=== PATIENT | female | born 1930 | race Caucasian/White ===

== ENCOUNTER 2016-07-03 21:21 | Inpatient (IN) | payer MEDICARE, OTHER ==
[~2016-07-03] VITALS: Ht 157.5 cm; Wt 80.0 kg
[~2016-07-03 21:21] MED LIST: ASPI81TA3 PO; BUPR150T18 PO; CALC500T99 PO; DEXL60CA2 PO; DIAZ-90 PO; DIVA125T2 PO; DONE10TA7 PO; FER325 PO; FOLI-49 PO; HYDR-906 PO; IBAN150T7 PO; IBUP-1542 PO; LOSA100T7 PO; MECL-77 PO; MEMA28CA PO; PREG50CA PO; RESTOP4 BOTH EYES
[2016-07-03] MEDS ORDERED: SOD CHLORIDE 0.9% 500 ML IV STA (21:33)
[2016-07-03] MEDS ORDERED: LORAZEPAM 2 MG INJ IV ONE (22:00)
--- NOTE | 2016-07-03 22:01 | RADRPT ---
PROCEDURE: CT Brain without contrast. CLINICAL INDICATION: Code stroke TECHNIQUE: A CT of the brain was performed utilizing axial imaging from the skull base through the vertex without intravenous contrast. Multiplanar reformatted images were made.The CTDIvol is 43.77 mGy and the DLP is 720.23 mGycm. One or more the following dose reduction techniques were utilized: Automated exposure control, adjus tment of the mA/ or kV according to patient's size, or use of iterative reconstruction technique. COMPARISON: 01/31/2014 FINDINGS: There is no intracranial hemorrhage, mass effect, or midline shift. No extra-axial fluid collection is seen. Mild atrophy is identified with compensatory ventricular and sulcal enlargement. Moderat e decreased attenuation is seen in the periventricular and deep white matter, compatible with microv ascular ischemic disease. The garcia white matter differentiation is well preserved with no acute infa rct detected. The osseous structures and visualized paranasal sinuses are unremarkable. No signifi cant change compared to previous study. Arterial calcification. IMPRESSION: No acute bleed. No acute major territory infarct seen. Critical result discussed with Dr. Antony at 09:57 p.m. on 07/03/2016. RPTAT: HJES .Flaquito Robles MD, MD Date Time Electronically viewed and signed by .Flaquito Robles MD, MD on 07/03/2016 22:00 .S/
[2016-07-03 22:08] LABS: ADD SCAN DIFF NO
[2016-07-03 22:12] LABS: BASOPHILS % 0.8 % (0.0-2.0); EOSINOPHILS # 0.1 10^3/ul (0.0-0.5); EOSINOPHILS % 2.4 % (0.0-7.0); HEMATOCRIT 39.1 % (37.0-47.0); HEMOGLOBIN 13.2 g/dl (12.0-16.0); LYMPHOCYTES # 2.3 10^3/ul (0.8-2.9); LYMPHOCYTES % 44.9 % (15.0-51.0); MEAN CORPUSCULAR HEMOGLOBIN 30.7 pg (29.0-33.0); MEAN CORPUSCULAR HGB CONC 33.8 g/dl (32.0-37.0); MEAN CORPUSCULAR VOLUME 90.9 fl (82.0-101.0); MONOCYTE # 0.5 10^3/ul (0.3-0.9); MONOCYTES % 9.8 % (0.0-11.0); NEUTROPHIL # 2.1 10^3/ul (1.6-7.5); NEUTROPHILS % 41.3 % (39.0-77.0); PLATELET COUNT 153 10^3/UL (140-415); RED CELL DISTRIBUTION WIDTH 12.9 % (11.5-14.5)
[2016-07-03 22:22] LABS: INR 1.05; PROTIME 13.7 Sec (12.2-14.2); PT RATIO 1.1
[2016-07-03 22:23] LABS: PARTIAL THROMBOPLASTIN TIME 27.6 Sec (25.0-35.0)
[2016-07-03 22:24] LABS: ALANINE AMINOTRANSFERASE 28 IU/L (13-69); ALBUMIN/GLOBULIN RATIO 1.21; ALKALINE PHOSPHATASE 77 IU/L (42-121); ANION GAP 10 (8-16); ASPARTATE AMINO TRANSFERASE 28 IU/L (15-46); BILIRUBIN,INDIRECT 0.2 mg/dl (0-1.1); BILIRUBIN,TOTAL 0.2 mg/dl (0.2-1.3); BLOOD UREA NITROGEN 14 mg/dl (7-20); CALCIUM 9.6 mg/dl (8.4-10.2); CARBON DIOXIDE 26 mmol/L (21-31); CHLORIDE 103 mmol/L (97-110); CREATININE 0.92 mg/dl (0.44-1.00); GLUCOSE 104 mg/dl (70-220); POTASSIUM 3.8 mmol/L (3.5-5.1); SODIUM 135 mmol/L (135-144); TOTAL PROTEIN 7.3 g/dl (6.1-8.1)
[2016-07-03 22:36] LABS: TROPONIN-I < 0.012 ng/ml (0.00-0.12)
--- NOTE | 2016-07-03 22:45 | RADRPT ---
PROCEDURE: CHEST - 1 VIEW CLINICAL INDICATION: 85-year-old female with change in mental status. TECHNIQUE: A single frontal AP semi-erect portable view of the chest was performed. The images we re reviewed on a PACS workstation. COMPARISON: Chest x-ray/right rib series March 17, 2015; chest x-ray January 31, 2014. FINDINGS: The cardiomediastinal silhouette is enlarged. The thoracic aortic arch is calcified. Chronic lung changes are present. There is mild pulmonary vascular congestion. There is a shallow inspiration a nd elevation right hemidiaphragm. There is mild bibasilar subsegmental atelectasis. There is no ev idence for focal consolidation. There is no evidence for congestive heart failure. There is no evid ence for pneumothorax. The osseous structures are intact. IMPRESSION: 1. Cardiomegaly. 2. Calcified thoracic aortic arch. 3. Chronic lung changes. 4. Mild pulmonary vascular congestion. 5. Shallow inspiration with elevation right hemidiaphragm. 6. Mild bibasilar subsegmental atelectasis. .Deepak Zazueta MD, MD Date Time Electronically viewed and signed by .Deepak Zazueta MD, on 07/03/2016 22:45 .M/
--- NOTE | 2016-07-03 23:01 | CONS ---
DATE OF ADMISSION: 07/03/2016 DATE OF CONSULTATION: 07/03/2016 REASON FOR CONSULTATION: I was asked to see the patient for mental status change. HISTORY OF PRESENT ILLNESS: The patient is an 85-year-old female with past medical history of macul ar degeneration, legal blindness, and dementia who was caring for her dying earlier tonight when she became agitated and upset. The patient was brought to the emergency department because of increased anxiety. While in the emergency department, the patient was noted to perhaps have some fa cial asymmetry. The patient has been struggling with the loss of her significant other recently. Ace luciano denies any recent illness for the patient at all, but does endorse a significant amount of dis tress. History was obtained through interpretation of the family. The patient denies any specific complaints at present and was able to provide some basic information regarding her history. The pat ient denies any weakness in the arms or the legs, difficulty swallowing, difficulty speaking. The p atient has no prior history of stroke. The patient reports no evidence of trauma. PAST MEDICAL HISTORY: The patient's past medical history is as described. MEDICATIONS: Her medication list is being collected. PHYSICAL EXAMINATION: The patient is alert, follows commands. Facies is grossly symmetric. Extrao cular movements are full. Strength is 5/5 throughout. The patient has gross ____. Sensation was i ntact. ASSESSMENT: This is a patient with a substantially limited baseline who comes in with symptoms of i ncreased anxiety without focal neurologic impairment that is suggestive of ischemic stroke. No fernando tional workup is required from a neurologic standpoint. If patient develops focality to her symptom atology, I recommend reconsultation. I shared my findings and recommendations with the emergency de partment team. Dictated By: LULU SHARP CM/STEWART Conf#: [id number] DID#: [id number]
[2016-07-04] VITALS (12 sets, daily range): BP systolic 112–144; BP diastolic 53–67; PULSE 62–78; RESP 18–20; TEMP 97.9; Ht 157.5 cm; Wt 80.0 kg
--- NOTE | 2016-07-04 00:55 | ERA ---
ER Documentation Chief Complaint Date/Time DATE: 07/04/16 TIME: 00:53 Chief Complaint anxiety, pt. arrives mumbling?, answers quest. by nodding head, purpos mvmo HPI This is an 85-year-old female who brought arriving mild mumbling by paramedics. According to family she got into an argument with her , that she became acutely altered mental status and started repeating phrases over an hour again. Family noted slight right-sided droop. Called 9 1. Paramedics found the patient in with complaints of anxiety however the patient does not follow any commands whatsoever. Code stroke called immediately ROS All systems reviewed and are negative except as per history of present illness. Medications Home Meds Active Scripts Hydrocodone Bit-Acetaminophen ([place]) 5-325 Mg Tablet, 1 TAB PO Q8 Y for PAIN, # 14 TAB Prov:OJ OATES MD 03/17/15 Diazepam* (Valium*) 5 Mg Tablet, 5 MG PO Q8, #14 TAB Prov:OJ OATES MD 03/17/15 Ibuprofen* (Motrin*) 600 Mg Tab, 600 MG PO Q8, #14 TAB Prov:OJ OATES MD 03/17/15 Reported Medications Bupropion Hcl* (Bupropion Hcl SR*) 150 Mg Tablet.er, 150 MG PO DAILY, TAB.SA 03/17/15 Meclizine Hcl* (Meclizine Hcl*) 25 Mg Tablet, 25 MG PO TID, TAB 03/17/15 Ibandronate Sodium* (Boniva*) 150 Mg Tablet, 150 MG PO Q28D, TAB 03/17/15 Pregabalin* (Lyrica*) 50 Mg Capsule, 50 MG PO BID, CAP 03/17/15 Divalproex Sodium* (Divalproex Sodium*) 125 Mg Tablet.dr, 125 MG PO BID, #120 TAB 03/17/15 Cyclosporine* (Restasis* Oph) 32 Ea [place], 1 DROP BOTH EYES Q12, EA 01/31/14 Donepezil* (Donepezil*) 10 Mg Tablet, 10 MG PO DAILY, TAB 01/31/14 Aspirin (Aspirin) 81 Mg Chew, 81 MG PO DAILY, TAB.CHEW 01/31/14 Losartan Potassium* (Losartan Potassium*) 100 Mg Tablet, 100 MG PO DAILY, TAB 01/31/14 Memantine* (Namenda* XR) 28 Mg Reid24, 28 MG PO DAILY, TAB 01/31/14 Dexlansoprazole (Dexilant) 60 Mg , 60 MG PO DAILY, CAP 01/31/14 Calcium Carbonate ([id number]) 1 Tab Tablet, 1 TAB PO 01/31/14 Ferrous Sulfate* (Ferrous Sulfate*) 325 Mg Tabec, 325 MG PO TID, TAB 01/31/14 Folic Acid* (Folic Acid*) 1 Mg Tablet, MG PO DAILY, TAB 01/31/14 Allergies Allergies: Coded Allergies: No Known Allergy (Unverified , 03/17/15) PMhx/Soc History of Surgery: Yes (APPENDECTOMY, gallbladder removed) Anesthesia Reaction: No Hx Neurological Disorder: Yes (dementia) Hx Respiratory Disorders: Yes (on 02 at home at 2L (am prm, @ pm)) Hx Cardiac Disorders: Yes (intermittent irregular hr, htn) Hx Psychiatric Problems: Yes (dementia, depression) Hx Miscellaneous Medical Probl: Yes (LEGALLY BLIND (macular degeneration)) Hx Alcohol Use: No Hx Substance Use: No Hx Tobacco Use: No Smoking Status: Never smoker Physical Exam Vitals Vital Signs Date Time Temp Pulse Resp B/P Pulse Ox O2 Delivery O2 Flow Rate FiO2 07/04/16 00:17 69 14 109/49 98 Room Air 07/03/16 23:23 97.9 72 16 133/65 100 Nasal Cannula 2.0 07/03/16 22:06 Nasal Cannula 2 07/03/16 21:28 97.4 77 20 142/76 95 Physical Exam Const: [] Head: Atraumatic Eyes: Normal Conjunctiva ENT: Normal External Ears, Nose and Mouth. Neck: Full range of motion..~ No meningismus. Resp: Clear to auscultation bilaterally Cardio: Regular rate and rhythm, no murmurs Abd: Soft, non tender, non distended. Normal bowel sounds Skin: No petechiae or rashes Back: No midline or flank tenderness Ext: No cyanosis, or edema Neur: Awake and alert Psych: Normal Mood and Affect Result Diagram: 07/03/16215707/03/162157 Results 24 hrs Laboratory Tests Test 07/03/16 21:38 07/03/16 21:58 Bedside Glucose 111mg/dL White Blood Count 5.010^3/ul Red Blood Count 4.3010^6/ul Hemoglobin 13.2g/dl Hematocrit 39.1% Mean Corpuscular Volume 90.9fl Mean Corpuscular Hemoglobin 30.7pg Mean Corpuscular Hemoglobin Concent 33.8g/dl Red Cell Distribution Width 12.9% Platelet Count 03193^3/UL Mean Platelet Volume 11.0fl Neutrophils % 41.3% Lymphocytes % 44.9% Monocytes % 9.8% Eosinophils % 2.4% Basophils % 0.8% Nucleated Red Blood Cells % 0.0/100WBC Neutrophils # 2.110^3/ul Lymphocytes # 2.310^3/ul Monocytes # 0.510^3/ul Eosinophils # 0.110^3/ul Basophils # 0.010^3/ul Nucleated Red Blood Cells # 0.010^3/ul Prothrombin Time 13.7Sec Prothrombin Time Ratio 1.1 INR International Normalized Ratio 1.05 Activated Partial Thromboplast Time 27.6Sec Sodium Level 135mmol/L Potassium Level 3.8mmol/L Chloride Level 103mmol/L Carbon Dioxide Level 26mmol/L Anion Gap 10 Blood Urea Nitrogen 14mg/dl Creatinine 0.92mg/dl Glucose Level 104mg/dl Hemoglobin A1c 5.5% Calcium Level 9.6mg/dl Total Bilirubin 0.2mg/dl Direct Bilirubin 0.00mg/dl Indirect Bilirubin 0.2mg/dl Aspartate Amino Transf (AST/SGOT) 28IU/L Alanine Aminotransferase (ALT/SGPT) 28IU/L Alkaline Phosphatase 77IU/L Troponin I < 0.012ng/ml Total Protein 7.3g/dl Albumin 4.0g/dl Globulin 3.30g/dl Albumin/Globulin Ratio 1.21 Current Medications Medications (Trade) Dose Ordered Sig/Vipin Route PRN Reason Start Time Stop Time Status Last Admin Dose Admin Sodium Chloride (NS) 500 ml @ 500 mls/hr Q1H STAT IV 07/03/16 21:33 07/03/16 22:32 DC 07/03/16 22:06 Lorazepam (Ativan) 1 mg ONCE ONCE IV 07/03/16 22:00 07/03/16 22:01 DC 07/03/16 22:07 Procedures/MDM EKG: Rate/Rhythm: Normal Sinus Rhythm QRS, ST, T-waves: No changes consistent w/ acute ischemia Impression: No evidence of ischemia or arrhythmia Chest X-ray 1V Interpreted by me: Soft Tissue: No acute abnormalities Bones: No acute abnormalities Mediastinum/Cardiac Silhouette/Lungs: No acute abnormalities Medical decision-making: Evaluated by telemetry neurology. Found to be not a TPA candidate. Questionable whether this is a even a central neurological process versus anxiety. Given the patient's age, poor history, noncompliant physical exam, patient will be admitted for observation to hospitalist to telemetry setting Departure Diagnosis: Primary Impression: Altered mental status Qualified Code: R41.0 - Disorientation Condition: Serious BREI SHAH July 04, 2016 00:55
[2016-07-04] MEDS ORDERED: ACETAMINOPHEN 325 MG TAB PO PRN (02:00)
[2016-07-04] MEDS ORDERED: NACL 0.9% 3 ML SYG IV SCH (02:00)
[2016-07-04] MEDS ORDERED: LORAZEPAM 2 MG INJ IV PRN ×2 (02:00→17:00)
[2016-07-04] MEDS ORDERED: ONDANSETRON 4 MG INJ IV PRN (02:00)
[2016-07-04] MEDS ORDERED: ALBUTEROL/IPRATROPIUM (NEB) 3 ML AMP HHN PRN (02:00)
--- NOTE | 2016-07-04 03:14 | HP ---
DATE OF ADMISSION: 07/03/2016 CHIEF COMPLAINT: Anxiety and weakness. HISTORY OF PRESENT ILLNESS: The patient is an 85-year-old female with a history of dementia, depres chi, hypertension, anemia, seizure, and who is also legally blind and presented to the emergency de partment with a chief complaint of anxiety and weakness. This patient is not a very good historian, but according to the chart review through family, the patient had been under a lot of stress lately and has been taking care of her dying . Last night, the patient was agitated with increased anxiety, and it seems like there was some probable facial droop that was noted. As such, she was b rought to the ER for evaluation. When she presented to the ER, her blood pressure was 142/76, heart rate 77, respiratory rate 20, temperature 97.4, oxygen saturation 95% on room air. Laboratory valu e shows CBC and CMP are unremarkable. Brain CT shows no acute findings, and chest x-ray shows cardi omegaly, mild pulmonary vascular congestion, mild bibasilar subsegmental atelectasis, and chronic seema ng change. Otherwise, no acute findings. The patient was evaluated by the teleneurologist, Dr. Kimberly Mckenna, in the ER who determined that the patient did not have any focal neurological deficits, an d he thinks that her presentation is secondary to anxiety associated with family issue, namely her kim good . No additional workup is recommended by the teleneurologist. The patient was given 1 mg of Ativan and 500 mL of NS, and currently she is awaiting admission to telemetry unit. REVIEW OF SYSTEMS: Unable to fully assess but negative except as mentioned in HPI. PAST MEDICAL HISTORY: As per HPI. PAST SURGICAL HISTORY: Cholecystectomy and appendectomy. SOCIAL HISTORY: No history of tobacco, alcohol, or illicit drug use. ALLERGIES: NO KNOWN DRUG ALLERGIES. HOME MEDICATIONS: 1. Donepezil. 2. Ferrous sulfate. 3. Losartan. 4. Aspirin. 5. Bupropion. 6. Diazepam. 7. Divalproex. 8. [place]. 9. Ibuprofen. 10. Namenda. 11. Lyrica. 12. Calcium. 13. Cyclosporine eyedrops. 14. Dexilant. 15. Meclizine. 16. Folic acid. 17. Boniva. PHYSICAL EXAMINATION: VITAL SIGNS: Stable. GENERAL: The patient lying in bed, sleepy but arousable, speaking slowly, and she is not fully orie nted. HEENT: No obvious head deformity. She is legally blind. No scleral icterus. No facial asymmetry or facial droop was noted. CARDIOVASCULAR: Regular rate and rhythm with no extra sounds. LUNGS: Clear. ABDOMEN: Soft, nontender, nondistended. Positive bowel sounds. EXTREMITIES: No edema. NEUROLOGIC: No focal deficits. LABORATORY: CBC and CMP are unremarkable. IMAGING: Chest x-ray and brain CT results as mentioned in the HPI. IMPRESSION: 1. Anxiety/probable altered mentation, secondary to agitation/anxiety. 2. History of dementia. 3. History of hypertension, blood pressure within goal. 4. History of seizure. PLAN: The patient will be admitted to telemetry unit for observation. As mentioned in the HPI, she has already been evaluated by the teleneurologist, Dr. Deepak Mckenna, who thinks that the patient solis s not need any additional workup from the neurologic point of view. She will, however, be placed on aspirin. We will check for A1c and fasting lipids. She will be placed on Lovenox for DVT prophyla xis. She will have physical therapy evaluation. If her neurological symptom returns, then we will consult neurology and also we will obtain MRI of the brain, carotid Doppler ultrasound, and a 2D ech o to fully workup for possible stroke, but for now, symptoms seem to be secondary to anxiety. She w ill be provided antianxiety medication. Depending on her clinical course, we will place telemetry p sychiatric consult. Further workup and management will be per clinical course. Dictated By: BRIE CHUNG/STEWART Conf#: [id number] DID#: [id number]
[2016-07-04] MEDS: DIAZEPAM 5 MG TAB PO SCH ×3 (06:00→21:37)
[2016-07-04 06:42] LABS: ADD SCAN DIFF NO
[2016-07-04 06:46] LABS: BASOPHILS % 0.7 % (0.0-2.0); EOSINOPHILS # 0.1 10^3/ul (0.0-0.5); EOSINOPHILS % 1.6 % (0.0-7.0); HEMATOCRIT 37.8 % (37.0-47.0); HEMOGLOBIN 12.8 g/dl (12.0-16.0); LYMPHOCYTES # 1.8 10^3/ul (0.8-2.9); LYMPHOCYTES % 42.5 % (15.0-51.0); MEAN CORPUSCULAR HEMOGLOBIN 31.4 pg (29.0-33.0); MEAN CORPUSCULAR HGB CONC 33.9 g/dl (32.0-37.0); MEAN CORPUSCULAR VOLUME 92.9 fl (82.0-101.0); MONOCYTE # 0.4 10^3/ul (0.3-0.9); MONOCYTES % 8.2 % (0.0-11.0); NEUTROPHILS % 46.3 % (39.0-77.0); PLATELET COUNT 137 10^3/UL (140-415); RED BLOOD COUNT 4.07 10^6/ul (4.20-5.40); RED CELL DISTRIBUTION WIDTH 12.6 % (11.5-14.5); WHITE BLOOD COUNT 4.3 10^3/ul (4.8-10.8)
[2016-07-04 07:10] LABS: ALBUMIN 3.7 g/dl (3.3-4.9); ALBUMIN/GLOBULIN RATIO 1.27; BILIRUBIN,INDIRECT 0.2 mg/dl (0-1.1); BILIRUBIN,TOTAL 0.2 mg/dl (0.2-1.3); CALCIUM 9.2 mg/dl (8.4-10.2); CHOL/HDL RATIO 5.1 RATIO; CREATININE 0.9 mg/dl (0.44-1.00); POTASSIUM 4.2 mmol/L (3.5-5.1); TOTAL PROTEIN 6.6 g/dl (6.1-8.1)
[2016-07-04 07:39] LABS: THYROID STIMULATING HORMONE 2.26 MIU/L (0.465-4.680)
[2016-07-04] MEDS: CYCLOSPORINE 0.05% OPH DROPERETTE BOTH EYES SCH ×2 (08:34→21:37)
[2016-07-04] MEDS: BUPROPION (SR) 150 MG TAB PO SCH (08:34)
[2016-07-04] MEDS: MECLIZINE 25 MG TAB PO SCH ×3 (08:34→21:37)
[2016-07-04] MEDS: PREGABALIN 25 MG CAP PO SCH ×2 (08:34→21:37)
[2016-07-04] MEDS: ASPIRIN 81 MG TAB PO SCH (08:34)
[2016-07-04] MEDS: DIVALPROEX (EC) 125 MG TAB PO SCH ×2 (08:34→21:37)
[2016-07-04] MEDS: FERROUS SULFATE (EC) 325 MG TAB PO SCH ×3 (08:34→21:37)
[2016-07-04] MEDS: LOSARTAN 50 MG TAB PO SCH (08:34)
[2016-07-04] MEDS: FOLIC ACID 1 MG TAB PO SCH (08:34)
[2016-07-04] MEDS: DONEPEZIL 10 MG TAB PO SCH (08:35)
[2016-07-04] MEDS: ENOXAPARIN 40 MG/0.4 ML SYG SC SCH (08:36)
[2016-07-04] MEDS ORDERED: ASPIRIN 81 MG TAB PO SCH (09:00)
--- NOTE | 2016-07-04 17:11 | RADRPT ---
PROCEDURE: US carotid arteries. CLINICAL INDICATION: Dizziness. TECHNIQUE: Multiple sonographic images of the carotid arteries and vertebral arteries were obtaine d utilizing garcia scale, duplex, and color-flow imaging. The images were reviewed on a PACS workstati on. COMPARISON: No prior studies are available for comparison. FINDINGS: Evaluation of the right carotid bifurcation region reveals mild atherosclerotic disease. Evaluation of the left carotid bifurcation region reveals mild atherosclerotic disease. There is antegrade flow within the vertebral arteries bilaterally. Incidental note is made of a hypoechoic nodule in the mid right thyroid measuring 0.9 x 0.9 x 1.2 cm . RIGHT CAROTID MEASUREMENTS: Common Carotid [id number] (cm/sec) Internal Carotid Artery 60 (cm/sec) External Carotid Artery 81 (cm/sec) Vertebral Artery 39 (cm/sec) Internal Carotid/Common Carotid1.1 LEFT CAROTID MEASUREMENTS: Common Carotid [id number] (cm/sec) Internal Carotid Artery 65 (cm/sec) External Carotid Artery 54 (cm/sec) Vertebral Artery 30 (cm/sec) Internal Carotid/Common Carotid1.4 Validated velocity measurements with angiographic measurements. Velocity criteria are extrapolated f rom diameter data as defined by the Society of Radiologists in Ultrasound Consensus Conference. Radi ology 2003; 229;340-346. This study does indirectly reference the measurement of the distal ICA bob meter as the denominator for stenosis measurement. IMPRESSION: 1. Less than 50% stenosis bilaterally in the internal carotid arteries. 2. Normal antegrade flow in the vertebral arteries bilaterally. 3. Probably benign nodule incidentally noted in the right lobe of thyroid measuring 0.9 x 0.9 x 1.2 cm. No further evaluation is required. RPTAT: QQ SRU Consensus Conference Criteria for the Diagnosis of Carotid Artery Stenosis* Degree of Stenosis, % ICA PSV, cm/sec Plaque Estimate, % ICA/CCA PSV Ratio Normal <125 None <2.0 <50 <125 <50 <2.0 50 69 125-230 >50 2.0-4.0 >70 but less than near occlusion >230 >50 <4.0 Near occlusion High, low, or undetectable Visible Variable Total occlusion Undetectable Visible, no detectable lumen Not applicable *Cartoid artery stenosis: garcia-scale and Doppler US diagnosis. Society of Radiologists in Ultrasound Consensus Conference. Radiology 2003; 229: 340-346 .Mckay Ignacio MD, MD Date Time Electronically viewed and signed by .Mckay Ignacio MD, on 07/04/2016 17:11 .R/
[2016-07-04] MEDS: MEMANTINE 10 MG TAB PO SCH (21:37)
[2016-07-05] VITALS (11 sets, daily range): BP systolic 111–141; BP diastolic 54–64; PULSE 63–73; RESP 18–20
[2016-07-05] MEDS: DIAZEPAM 5 MG TAB PO SCH ×3 (06:19→22:03)
[2016-07-05 07:25] LABS: ADD SCAN DIFF NO
[2016-07-05 07:27] LABS: BASOPHILS % 0.6 % (0.0-2.0); EOSINOPHILS # 0.1 10^3/ul (0.0-0.5); EOSINOPHILS % 1.7 % (0.0-7.0); HEMATOCRIT 39.3 % (37.0-47.0); HEMOGLOBIN 13.1 g/dl (12.0-16.0); LYMPHOCYTES # 1.5 10^3/ul (0.8-2.9); LYMPHOCYTES % 32.2 % (15.0-51.0); MEAN CORPUSCULAR HEMOGLOBIN 31.1 pg (29.0-33.0); MEAN CORPUSCULAR HGB CONC 33.3 g/dl (32.0-37.0); MEAN CORPUSCULAR VOLUME 93.3 fl (82.0-101.0); MEAN PLATELET VOLUME 10.9 fl (7.4-10.4); MONOCYTE # 0.4 10^3/ul (0.3-0.9); MONOCYTES % 9.3 % (0.0-11.0); NEUTROPHIL # 2.6 10^3/ul (1.6-7.5); NEUTROPHILS % 54.9 % (39.0-77.0); PLATELET COUNT 137 10^3/UL (140-415); RED BLOOD COUNT 4.21 10^6/ul (4.20-5.40); RED CELL DISTRIBUTION WIDTH 12.8 % (11.5-14.5); WHITE BLOOD COUNT 4.8 10^3/ul (4.8-10.8)
[2016-07-05 07:53] LABS: POTASSIUM 4.2 mmol/L (3.5-5.1)
[2016-07-05 07:55] LABS: CREATININE 0.95 mg/dl (0.44-1.00)
--- NOTE | 2016-07-05 07:55 | RADRPT ---
PROCEDURE: MR Brain without contrast. CLINICAL INDICATION: Neurologic deficit, stroke TECHNIQUE: An MRI of the brain was performed on a high-resolution MR scanner utilizing the followi ng sequences: Sagittal and axial T1 weighted, axial T2 weighted, axial FLAIR, coronal GRE, and axial diffusion weighted with ADC mapping. Images were reviewed high-resolution PACS workstation. No con trast was administered. COMPARISON: Head CT 07/03/2016 FINDINGS: No acute parenchymal hemorrhage, mass effect, or midline shift. No evidence of recent infarct. Scatt ered subcortical, deep, and periventricular white matter T2-weighted/FLAIR hyperintensities are cons istent with moderate chronic microvascular ischemic disease. No suspicious parenchymal hypointense signal abnormalities are seen on the GRE images to suggest the presence of blood degradation products. The ventricles are stable size with mild to moderate generalized volume loss. Normal flow voids are visible in the proximal intracranial arteries suggesting their patency. No significant opacification of the paranasal sinuses or mastoids. IMPRESSION: No acute intracranial abnormality identified. No evidence of recent infarct. Moderate chronic microvascular disease. Mild to moderate volume loss. RPTAT: AA .Cedric Bradley MD, MD Date Time Electronically viewed and signed by .Cedric Bradley MD, on 07/05/2016 07:54 .T/
[2016-07-05 07:56] LABS: CALCIUM 9.2 mg/dl (8.4-10.2)
[2016-07-05 07:57] LABS: MAGNESIUM 1.9 mg/dl (1.7-2.5)
[2016-07-05] MEDS: LOSARTAN 50 MG TAB PO SCH (08:14)
[2016-07-05] MEDS: DIVALPROEX (EC) 125 MG TAB PO SCH ×2 (08:14→20:42)
[2016-07-05] MEDS: MECLIZINE 25 MG TAB PO SCH ×3 (08:14→20:42)
[2016-07-05] MEDS: BUPROPION (SR) 150 MG TAB PO SCH (08:14)
[2016-07-05] MEDS: DONEPEZIL 10 MG TAB PO SCH (08:14)
[2016-07-05] MEDS: ASPIRIN 81 MG TAB PO SCH (08:14)
[2016-07-05] MEDS: MEMANTINE 10 MG TAB PO SCH ×2 (08:14→20:42)
[2016-07-05] MEDS: FERROUS SULFATE (EC) 325 MG TAB PO SCH ×3 (08:14→20:42)
[2016-07-05] MEDS: PREGABALIN 25 MG CAP PO SCH ×2 (08:14→20:42)
[2016-07-05] MEDS: CYCLOSPORINE 0.05% OPH DROPERETTE BOTH EYES SCH ×2 (08:15→22:03)
[2016-07-05] MEDS: FOLIC ACID 1 MG TAB PO SCH (08:15)
[2016-07-05] MEDS: ENOXAPARIN 40 MG/0.4 ML SYG SC SCH (08:53)
[2016-07-05 09:14] LABS: ADD UMIC NO; URINE BILIRUBIN (Dip) NEGATIVE (NEGATIVE); URINE BLOOD (Dip) NEGATIVE (NEGATIVE); URINE COLOR LT. YELLOW (YELLOW); URINE GLUCOSE (Dip) NEGATIVE (NEGATIVE); URINE KETONES (Dip) NEGATIVE (NEGATIVE); URINE LEUKOCYTE ESTERASE (Dip) NEGATIVE (NEGATIVE); URINE NITRITE (Dip) NEGATIVE (NEGATIVE); URINE TOTAL PROTEIN (Dip) NEGATIVE (NEGATIVE); URINE UROBILINOGEN (Dip) 0.2 E.U./dL (0.1-1.0)
[2016-07-05 10:03] LABS: BARBITURATES NEGATIVE (NEGATIVE); BENZODIAZEPINES NEGATIVE (NEGATIVE); CANNABINOIDS NEGATIVE (NEGATIVE); COCAINE NEGATIVE (NEGATIVE); OPIATES NEGATIVE (NEGATIVE)
--- NOTE | 2016-07-05 14:37 | PN ---
Date/Time of Note Date/Time of Note DATE: 07/05/16 TIME: 14:28 Assessment/Plan VTE Prophylaxis VTE Prophylaxis Intervention: LMWH Lines/Catheters IV Catheter Type (from [facility]): Saline Lock Urinary Cath still in place: No Assessment/Plan Assessment/Plan 1. Generalized weakness, no significant acute illness is found, PT 2. Dementia, chronic 3. Hypertension, 4. Seizure disorder, stable 5. DVT prophylaxis: lovenox Subjective 24 Hr Interval Summary Free Text/Dictation weak, but full alert without acute distress Exam/Review of Systems Vital Signs Vitals Vital Signs Date Time Temp Pulse Resp B/P Pulse Ox O2 Delivery O2 Flow Rate FiO2 07/05/16 12:08 67 07/05/16 11:39 97.9 18 141/64 92 07/05/16 08:00 Nasal Cannula 2.0 Intake and Output 07/04/16 07/04/16 07/05/16 15:00 23:00 07:00 Intake Total 800 ml Output Total 800 ml Balance 800 ml -800 ml Exam Constitutional: alert, oriented, well developed Head: atraumatic, normocephalic Eyes: EOMI, PERRL, nl conjunctiva, nl lids ENMT: nl external ears & nose, nl lips & teeth, nl nasal mucosa & septum Neck: non-tender, supple Respiratory: clear to auscultation, normal air movement, No congested cough, No crackles/rales, No diminished breath sounds, No intercostal retraction, No labored breathing, No other, No respirations, No tactile fremitus, No wheezing Cardiovascular: nl pulses, regular rate and rhythm, No S3, No S4, No bruits, No diastolic murmur, No edema, No gallop, No irregular rhythm, No jugular venous distention (JVD), No murmurs/extra sounds, No other, No rub, No systolic murmur Gastrointestinal: nl liver, spleen, non-tender, soft, No ascites, No bowel sounds, No distended, No firm, No hepatomegaly, No mass , No other, No rebound or guarding, No splenomegaly, No surgical scars, No tender Musculoskeletal: nl extremities to inspection Extremities: normal pulses, No calf tenderness, No clubbing, No cyanosis, No edema, No other, No palpable cord, No pitting pedal edema, No tenderness Neurological: DRAWING CHECKER II-XII intact, nl mental status, nl speech, nl strength Skin: nl turgor Lymph: nl lymph nodes Results Result Diagram: 07/05/16 0630 07/05/16 0039 Results 24 hrs Laboratory Tests Test 07/05/16 00:39 07/05/16 02:00 07/05/16 06:30 Sodium Level 139 Potassium Level 4.2 Chloride Level 101 Carbon Dioxide Level 28 Anion Gap 14 Blood Urea Nitrogen 16 Creatinine 0.95 Glucose Level 103 Calcium Level 9.2 Phosphorus Level 4.0 Magnesium Level 1.9 Urine Color LT. YELLOW Urine Clarity CLEAR Urine pH 5.5 Urine Specific [place] 1.015 Urine Ketones NEGATIVE Urine Nitrite NEGATIVE Urine Bilirubin NEGATIVE Urine Urobilinogen 0.2 E.U./dL Urine Leukocyte Esterase NEGATIVE Urine Hemoglobin NEGATIVE Urine Glucose NEGATIVE Urine Total Protein NEGATIVE Urine Opiates Screen NEGATIVE Urine Barbiturates NEGATIVE Urine Amphetamines Screen NEGATIVE Urine Benzodiazepines Screen NEGATIVE Urine Cocaine Screen NEGATIVE Urine Cannabinoids NEGATIVE White Blood Count 4.8 Red Blood Count 4.21 Hemoglobin 13.1 Hematocrit 39.3 Mean Corpuscular Volume 93.3 Mean Corpuscular Hemoglobin 31.1 Mean Corpuscular Hemoglobin Concent 33.3 Red Cell Distribution Width 12.8 Platelet Count 137 L Mean Platelet Volume 10.9 H Neutrophils % 54.9 Lymphocytes % 32.2 Monocytes % 9.3 Eosinophils % 1.7 Basophils % 0.6 Nucleated Red Blood Cells % 0.0 Neutrophils # 2.6 Lymphocytes # 1.5 Monocytes # 0.4 Eosinophils # 0.1 Basophils # 0.0 Nucleated Red Blood Cells # 0.0 Medications Medications Current Medications Ondansetron HCl (Zofran Inj) 4 mg Q6H PRN IV NAUSEA AND/OR VOMITING; Start at 02:00 Acetaminophen (Tylenol Tab) 650 mg Q6H PRN PO PAIN LEVEL 1-3 OR FEVER; Start at 02:00 Morphine Sulfate (morphine) 2 mg Q4H PRN IV PAIN LEVEL 7-10; Start 07/04/16 at 02:00 Enoxaparin Sodium (Lovenox) 40 mg DAILY SC Last administered on 07/05/16 08:53 ; Admin Dose 40 MG; Start 07/04/16 at 09:00 Aspirin (Aspirin) 81 mg DAILY PO Last administered on 07/05/16 08:14; Admin Dose 81 MG; Start 07/04/16 at 09:00 Bupropion HCl (Wellbutrin Sr) 150 mg DAILY PO Last administered on 07/05/16 08 :14; Admin Dose 150 MG; Start 07/04/16 at 09:00 Cyclosporine (Restasis) 1 drop Q12 BOTH EYES Last administered on 07/05/16 08: 15; Admin Dose 1 DROP; Start 07/04/16 at 09:00 Diazepam (Valium) 5 mg Q8 PO Last administered on 07/05/16 13:07; Admin Dose 5 MG; Start 07/04/16 at 06:00 Divalproex Sodium (Depakote) 125 mg BID PO Last administered on 07/05/16 08:14 ; Admin Dose 125 MG; Start 07/04/16 at 09:00 Donepezil HCl (Aricept) 10 mg DAILY PO Last administered on 07/05/16 08:14; Admin Dose 10 MG; Start 07/04/16 at 09:00 Ferrous Sulfate (Ferrous Sulfate (Ec)) 325 mg TID PO Last administered on 13:07; Admin Dose 325 MG; Start 07/04/16 at 09:00 Folic Acid (Folic Acid) 1 mg DAILY PO Last administered on 07/05/16 08:15; Admin Dose 1 MG; Start 07/04/16 at 09:00 Acetaminophen/ Hydrocodone Bitart ([place] (5/325)) 1 tab Q8 PRN PO PAIN; Start 07/04/16 at 02:00 Losartan Potassium (Cozaar) 100 mg DAILY PO Last administered on 07/05/16 08: 14; Admin Dose 100 MG; Start 07/04/16 at 09:00 Meclizine HCl (Antivert) 25 mg TID PO Last administered on 07/05/16 13:07; Admin Dose 25 MG; Start 07/04/16 at 09:00 Pregabalin (Lyrica) 50 mg BID PO Last administered on 07/05/16 08:14; Admin Dose 50 MG; Start 07/04/16 at 09:00 Memantine (Namenda) 10 mg BID PO Last administered on 07/05/16 08:14; Admin Dose 10 MG; Start 07/04/16 at 21:00 Lorazepam (Ativan) 1 mg Q6H PRN IV Anxiety; Start 07/04/16 at 17:00 KAREY BABCOCK MD July 05, 2016 14:37
[2016-07-06 00:50] VITALS: PULSE 67
[2016-07-06] MEDS: DIAZEPAM 5 MG TAB PO SCH ×3 (06:23→21:08)
[2016-07-06 07:40] VITALS: BP 130/62; RESP 18
[2016-07-06] MEDS: MEMANTINE 10 MG TAB PO SCH ×2 (08:46→21:08)
[2016-07-06] MEDS: DIVALPROEX (EC) 125 MG TAB PO SCH ×2 (08:46→21:08)
[2016-07-06] MEDS: MECLIZINE 25 MG TAB PO SCH ×3 (08:46→21:08)
[2016-07-06] MEDS: BUPROPION (SR) 150 MG TAB PO SCH (08:46)
[2016-07-06] MEDS: FERROUS SULFATE (EC) 325 MG TAB PO SCH ×3 (08:46→21:08)
[2016-07-06] MEDS: CYCLOSPORINE 0.05% OPH DROPERETTE BOTH EYES SCH ×2 (08:47→21:08)
[2016-07-06] MEDS: DONEPEZIL 10 MG TAB PO SCH (08:47)
[2016-07-06] MEDS: LOSARTAN 50 MG TAB PO SCH (08:47)
[2016-07-06] MEDS: PREGABALIN 25 MG CAP PO SCH ×2 (08:47→21:08)
[2016-07-06] MEDS: ASPIRIN 81 MG TAB PO SCH (08:47)
[2016-07-06] MEDS: FOLIC ACID 1 MG TAB PO SCH (08:47)
[2016-07-06] MEDS: ENOXAPARIN 40 MG/0.4 ML SYG SC SCH (08:59)
--- NOTE | 2016-07-06 09:57 | RADRPT ---
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 Physician: NEPTALI NOLAN Quality: Good Procedures: Transthoracic echocardiogram with complete 2D, M-Mode, and doppler examination. Indications: Chest Pain. 2D/M Mode Doppler Measurement Value Normal Ranges Measurement Value Normal Ranges LVIDd 2D 4.7 3.5 - 5.6 cm AV Peak Jak 1.7 m/sec LVIDs 2D 2.2 2.1 - 4.1 cm AV Peak PG 11.0 mmHg FS 2D 53.6 % LVOT Peak Jak 1.2 m/sec LVPWd 2D 0.8 0.6 - 1.1 cm LVOT Peak PG 6.0 mmHg IVSd 2D 0.9 0.6 - 1.1 cm MV E Peak Jak 0.7 m/sec IVS/LVPW 2D 1.1 MV A Peak Jak 1.1 m/sec AoR Diam 2D 2.9 2.0 - 3.7 cm MV E/A 0.6 LA/Ao 2D 1 0 - 1 MV Decel Time 299 msec EDV 2D 106.0 cm3 MV E/A 0.6 ESV 2D 10.6 cm3 TR Peak Jak 2.5 m/sec LA Dimen 2D 3.2 2.3 - 4.0 cm TR Peak PG 24.0 mmHg RVSP 27.0 mmHg Findings Left Ventricle: Normal left ventricular systolic function. Normal left ventricular cavity size. Normal left ventricular wall thickness. Ejection fraction is visually estimated at 65 %. Tissue Doppler/Mitral Doppler indices are consistent with impaired relaxation (Stage I diastolic dysfunction). Right Ventricle: Normal right ventricular size. Normal right ventricular systolic function. Left Atrium: The left atrium is normal in size. Right Atrium: The right atrium is normal in size. Mitral Valve: Normal appearance of the mitral valve. Mild mitral annular calcification. No mitral valve regurgitation is seen. Aortic Valve: No significant aortic stenosis or insufficiency. Aortic cusps appear mildly calcified. Tricuspid Valve: Normal appearance of the tricuspid valve. Estimated peak PA systolic pressure 27 mmHg. There is mild tricuspid regurgitation. Pulmonic Valve: Pulmonic valve not well visualized. Pericardium: Normal pericardium with no significant pericardial effusion. Aorta: Normal aortic root. IVC: Normal size and normal respiratory collapse consistent with normal right atrial pressure. Conclusions 1.Normal left ventricular systolic function. Normal left ventricular cavity size. Normal left ventricular wall thickness. Ejection fraction is visually estimated at 65 %. Tissue Doppler/Mitral Doppler indices are consistent with impaired relaxation (Stage I diastolic dysfunction). 2.Normal appearance of the mitral valve. Mild mitral annular calcification. No mitral valve regurgitation is seen. 3.No significant aortic stenosis or insufficiency. Aortic cusps appear mildly calcified. 4.Normal appearance of the tricuspid valve. Estimated peak PA systolic pressure 27 mmHg. There is mild tricuspid regurgitation. Electronically Signed By: Loc España 06-Jul-2016 09:56:25 -0700 Patient Name: LEXY HENDERSON Study Date: 05-Jul-2016 [id number]
[2016-07-06 11:37] VITALS: BP_SYST 58; RESP 18
--- NOTE | 2016-07-06 15:37 | PN ---
Date/Time of Note Date/Time of Note DATE: 07/06/16 TIME: 15:34 Assessment/Plan VTE Prophylaxis VTE Prophylaxis Intervention: LMWH Lines/Catheters IV Catheter Type (from [facility]): Saline Lock Urinary Cath still in place: No Assessment/Plan Assessment/Plan 1. Generalized weakness, no significant acute illness is found, patient denies depression or anxiety for symptoms started after she had argument with her , continue PT 2. Dementia, chronic 3. Hypertension, controlled 4. Seizure disorder, stable 5. DVT prophylaxis: lovenox Subjective 24 Hr Interval Summary Free Text/Dictation still werak. no dizziness, no cough or shortness of breath, no chest pain. Exam/Review of Systems Vital Signs Vitals Vital Signs Date Time Temp Pulse Resp B/P Pulse Ox O2 Delivery O2 Flow Rate FiO2 07/06/16 13:35 Nasal Cannula 2.0 07/06/16 11:37 98.0 74 18 58/ 93 Intake and Output 07/05/16 07/05/16 07/06/16 15:00 23:00 07:00 Intake Total 500 ml 350 ml Balance 500 ml 350 ml Exam Constitutional: alert, oriented, well developed Psych: nl mood/affect, no complaints Head: atraumatic, normocephalic Eyes: EOMI, PERRL, nl conjunctiva ENMT: nl external ears & nose, nl lips & teeth, nl nasal mucosa & septum Neck: non-tender, supple Respiratory: clear to auscultation, normal air movement, No congested cough, No crackles/rales, No diminished breath sounds, No intercostal retraction, No labored breathing, No other, No respirations, No tactile fremitus, No wheezing Cardiovascular: nl pulses, regular rate and rhythm, No S3, No S4, No bruits, No diastolic murmur, No edema, No gallop, No irregular rhythm, No jugular venous distention (JVD), No murmurs/extra sounds, No other, No rub, No systolic murmur Gastrointestinal: nl liver, spleen, non-tender, soft, No ascites, No bowel sounds, No distended, No firm, No hepatomegaly, No mass , No other, No rebound or guarding, No splenomegaly, No surgical scars, No tender Musculoskeletal: nl extremities to inspection Extremities: normal pulses, No calf tenderness, No clubbing, No cyanosis, No edema, No other, No palpable cord, No pitting pedal edema, No tenderness Neurological: UNSCRAMBLER II-XII intact, nl mental status, nl speech, nl strength Skin: nl turgor Lymph: nl lymph nodes Results Result Diagram: 07/05/16 0630 07/05/16 0039 Medications Medications Current Medications Ondansetron HCl (Zofran Inj) 4 mg Q6H PRN IV NAUSEA AND/OR VOMITING; Start at 02:00 Acetaminophen (Tylenol Tab) 650 mg Q6H PRN PO PAIN LEVEL 1-3 OR FEVER; Start at 02:00 Morphine Sulfate (morphine) 2 mg Q4H PRN IV PAIN LEVEL 7-10; Start 07/04/16 at 02:00 Enoxaparin Sodium (Lovenox) 40 mg DAILY SC Last administered on 07/06/16 08:59 ; Admin Dose 40 MG; Start 07/04/16 at 09:00 Aspirin (Aspirin) 81 mg DAILY PO Last administered on 07/06/16 08:47; Admin Dose 81 MG; Start 07/04/16 at 09:00 Bupropion HCl (Wellbutrin Sr) 150 mg DAILY PO Last administered on 07/06/16 08 :46; Admin Dose 150 MG; Start 07/04/16 at 09:00 Cyclosporine (Restasis) 1 drop Q12 BOTH EYES Last administered on 07/06/16 08: 47; Admin Dose 1 DROP; Start 07/04/16 at 09:00 Diazepam (Valium) 5 mg Q8 PO Last administered on 07/06/16 14:58; Admin Dose 5 MG; Start 07/04/16 at 06:00 Divalproex Sodium (Depakote) 125 mg BID PO Last administered on 07/06/16 08:46 ; Admin Dose 125 MG; Start 07/04/16 at 09:00 Donepezil HCl (Aricept) 10 mg DAILY PO Last administered on 07/06/16 08:47; Admin Dose 10 MG; Start 07/04/16 at 09:00 Ferrous Sulfate (Ferrous Sulfate (Ec)) 325 mg TID PO Last administered on 14:58; Admin Dose 325 MG; Start 07/04/16 at 09:00 Folic Acid (Folic Acid) 1 mg DAILY PO Last administered on 07/06/16 08:47; Admin Dose 1 MG; Start 07/04/16 at 09:00 Acetaminophen/ Hydrocodone Bitart ([place] (5/325)) 1 tab Q8 PRN PO PAIN; Start 07/04/16 at 02:00 Losartan Potassium (Cozaar) 100 mg DAILY PO Last administered on 07/06/16 08: 47; Admin Dose 100 MG; Start 07/04/16 at 09:00 Meclizine HCl (Antivert) 25 mg TID PO Last administered on 07/06/16 14:58; Admin Dose 25 MG; Start 07/04/16 at 09:00 Pregabalin (Lyrica) 50 mg BID PO Last administered on 07/06/16 08:47; Admin Dose 50 MG; Start 07/04/16 at 09:00 Memantine (Namenda) 10 mg BID PO Last administered on 07/06/16 08:46; Admin Dose 10 MG; Start 07/04/16 at 21:00 Lorazepam (Ativan) 1 mg Q6H PRN IV Anxiety; Start 07/04/16 at 17:00 KAREY BABCOCK MD July 06, 2016 15:37
[2016-07-06 19:28] VITALS: BP 118/64; RESP 20
[2016-07-07] MEDS: DIAZEPAM 5 MG TAB PO SCH ×3 (06:05→23:00)
[2016-07-07] MEDS: MEMANTINE 10 MG TAB PO SCH ×2 (09:51→21:18)
[2016-07-07] MEDS: MECLIZINE 25 MG TAB PO SCH ×3 (09:51→21:18)
[2016-07-07] MEDS: DIVALPROEX (EC) 125 MG TAB PO SCH ×2 (09:51→21:18)
[2016-07-07] MEDS: PREGABALIN 25 MG CAP PO SCH ×2 (09:51→21:18)
[2016-07-07] MEDS: DONEPEZIL 10 MG TAB PO SCH (09:51)
[2016-07-07] MEDS: FOLIC ACID 1 MG TAB PO SCH (09:51)
[2016-07-07] MEDS: ASPIRIN 81 MG TAB PO SCH (09:51)
[2016-07-07] MEDS: LOSARTAN 50 MG TAB PO SCH (09:51)
[2016-07-07] MEDS: BUPROPION (SR) 150 MG TAB PO SCH (09:52)
[2016-07-07] MEDS: CYCLOSPORINE 0.05% OPH DROPERETTE BOTH EYES SCH ×2 (09:52→21:00)
[2016-07-07] MEDS: FERROUS SULFATE (EC) 325 MG TAB PO SCH ×3 (09:52→21:18)
[2016-07-07] MEDS: morphine 2 MG INJ IV PRN (10:51)
[2016-07-07] MEDS: ENOXAPARIN 40 MG/0.4 ML SYG SC SCH (10:54)
[2016-07-07] MEDS: HYDROCODONE/APAP (5/325) TAB PO PRN (11:03)
--- NOTE | 2016-07-07 17:34 | PN ---
Date/Time of Note Date/Time of Note DATE: 07/07/16 TIME: 17:32 Assessment/Plan VTE Prophylaxis VTE Prophylaxis Intervention: LMWH Lines/Catheters IV Catheter Type (from Nrs): Saline Lock Urinary Cath still in place: No Assessment/Plan Assessment/Plan 1. Generalized weakness, no significant acute illness is found, patient denies depression or anxiety for symptoms started after she had argument with her , continue PT 2. Dementia, chronic 3. Hypertension, controlled 4. Seizure disorder, stable 5. DVT prophylaxis: lovenox Subjective 24 Hr Interval Summary Free Text/Dictation doing ok, BP stable Exam/Review of Systems Vital Signs Vitals Vital Signs Date Time Temp Pulse Resp B/P Pulse Ox O2 Delivery O2 Flow Rate FiO2 07/07/16 08:00 Nasal Cannula 2.0 07/06/16 19:28 97.5 77 20 118/64 93 Intake and Output 07/06/16 07/06/16 07/07/16 15:00 23:00 07:00 Intake Total 600 ml 300 ml Output Total 200 ml Balance 400 ml 300 ml Exam Constitutional: alert Psych: no complaints Head: normocephalic Eyes: nl conjunctiva Respiratory: clear to auscultation, diminished breath sounds, normal air movement Cardiovascular: regular rate and rhythm Gastrointestinal: distended, soft Neurological: FIRE BOAT ENGINEER II-XII intact Results Result Diagram: 07/05/16 0630 07/05/16 0039 Medications Medications Current Medications Ondansetron HCl (Zofran Inj) 4 mg Q6H PRN IV NAUSEA AND/OR VOMITING; Start at 02:00 Acetaminophen (Tylenol Tab) 650 mg Q6H PRN PO PAIN LEVEL 1-3 OR FEVER; Start at 02:00 Morphine Sulfate (morphine) 2 mg Q4H PRN IV PAIN LEVEL 7-10 Last administered on 07/07/16 10:51; Admin Dose 2 MG; Start 07/04/16 at 02:00 Enoxaparin Sodium (Lovenox) 40 mg DAILY SC Last administered on 07/07/16 10:54 ; Admin Dose 40 MG; Start 07/04/16 at 09:00 Aspirin (Aspirin) 81 mg DAILY PO Last administered on 07/07/16 09:51; Admin Dose 81 MG; Start 07/04/16 at 09:00 Bupropion HCl (Wellbutrin Sr) 150 mg DAILY PO Last administered on 07/07/16 09 :52; Admin Dose 150 MG; Start 07/04/16 at 09:00 Cyclosporine (Restasis) 1 drop Q12 BOTH EYES Last administered on 07/07/16 09: 52; Admin Dose 1 DROP; Start 07/04/16 at 09:00 Diazepam (Valium) 5 mg Q8 PO Last administered on 07/07/16 13:53; Admin Dose 5 MG; Start 07/04/16 at 06:00 Divalproex Sodium (Depakote) 125 mg BID PO Last administered on 07/07/16 09:51 ; Admin Dose 125 MG; Start 07/04/16 at 09:00 Donepezil HCl (Aricept) 10 mg DAILY PO Last administered on 07/07/16 09:51; Admin Dose 10 MG; Start 07/04/16 at 09:00 Ferrous Sulfate (Ferrous Sulfate (Ec)) 325 mg TID PO Last administered on 13:53; Admin Dose 325 MG; Start 07/04/16 at 09:00 Folic Acid (Folic Acid) 1 mg DAILY PO Last administered on 07/07/16 09:51; Admin Dose 1 MG; Start 07/04/16 at 09:00 Acetaminophen/ Hydrocodone Bitart ([place] (5/325)) 1 tab Q8 PRN PO PAIN Last administered on 07/07/16 11:03; Admin Dose 1 TAB; Start 07/04/16 at 02:00 Losartan Potassium (Cozaar) 100 mg DAILY PO Last administered on 07/07/16 09: 51; Admin Dose 100 MG; Start 07/04/16 at 09:00 Meclizine HCl (Antivert) 25 mg TID PO Last administered on 07/07/16 13:53; Admin Dose 25 MG; Start 07/04/16 at 09:00 Pregabalin (Lyrica) 50 mg BID PO Last administered on 07/07/16 09:51; Admin Dose 50 MG; Start 07/04/16 at 09:00 Memantine (Namenda) 10 mg BID PO Last administered on 07/07/16 09:51; Admin Dose 10 MG; Start 07/04/16 at 21:00 Lorazepam (Ativan) 1 mg Q6H PRN IV Anxiety; Start 07/04/16 at 17:00 JERAMY OTTO MD July 07, 2016 17:33
[2016-07-07 20:05] VITALS: BP 132/65; RESP 18
[2016-07-08] MEDS: DIAZEPAM 5 MG TAB PO SCH ×4 (00:59→21:24)
[2016-07-08] MEDS: HYDROCODONE/APAP (5/325) TAB PO PRN ×2 (06:02→13:54)
[2016-07-08 07:49] VITALS: BP 119/70; RESP 20
[2016-07-08] MEDS: ASPIRIN 81 MG TAB PO SCH (09:28)
[2016-07-08] MEDS: BUPROPION (SR) 150 MG TAB PO SCH (09:28)
[2016-07-08] MEDS: DIVALPROEX (EC) 125 MG TAB PO SCH ×2 (09:28→20:27)
[2016-07-08] MEDS: MEMANTINE 10 MG TAB PO SCH ×2 (09:29→20:28)
[2016-07-08] MEDS: LOSARTAN 50 MG TAB PO SCH (09:29)
[2016-07-08] MEDS: CYCLOSPORINE 0.05% OPH DROPERETTE BOTH EYES SCH ×2 (09:29→20:28)
[2016-07-08] MEDS: DONEPEZIL 10 MG TAB PO SCH (09:29)
[2016-07-08] MEDS: FERROUS SULFATE (EC) 325 MG TAB PO SCH ×3 (09:29→20:28)
[2016-07-08] MEDS: MECLIZINE 25 MG TAB PO SCH ×3 (09:29→20:28)
[2016-07-08] MEDS: FOLIC ACID 1 MG TAB PO SCH (09:29)
[2016-07-08] MEDS: PREGABALIN 25 MG CAP PO SCH ×2 (09:31→21:22)
[2016-07-08] MEDS: morphine 2 MG INJ IV PRN (10:21)
[2016-07-08] MEDS: ENOXAPARIN 40 MG/0.4 ML SYG SC SCH (11:57)
[2016-07-08 19:45] VITALS: BP 132/69; PULSE 72; RESP 18
--- NOTE | 2016-07-08 22:59 | PN ---
Date/Time of Note Date/Time of Note DATE: 07/08/16 TIME: 22:58 Assessment/Plan VTE Prophylaxis VTE Prophylaxis Intervention: LMWH Lines/Catheters IV [facility]ter Type (from [facility]): Saline Lock Urinary Cath still in place: No Assessment/Plan Assessment/Plan 1. Generalized weakness, no significant acute illness is found, patient denies depression or anxiety for symptoms started after she had argument with her , continue PT 2. Dementia, chronic 3. Hypertension, controlled 4. Seizure disorder, stable 5. DVT prophylaxis: lovenox Exam/Review of Systems Vital Signs Vitals Vital Signs Date Time Temp Pulse Resp B/P Pulse Ox O2 Delivery O2 Flow Rate FiO2 07/08/16 20:00 Nasal Cannula 2.0 07/08/16 07:49 97.6 63 20 119/70 94 Intake and Output 07/07/16 07/07/16 07/08/16 15:00 23:00 07:00 Intake Total 600 ml 720 ml Output Total 600 ml 200 ml Balance 0 ml 520 ml Exam Constitutional: alert Psych: no complaints Head: normocephalic Eyes: nl conjunctiva Respiratory: clear to auscultation, diminished breath sounds, normal air movement Cardiovascular: regular rate and rhythm Gastrointestinal: distended, soft Neurological: SCIENTIFIC INFORMATICS ANALYST II-XII intact Results Result Diagram: 07/05/16 0630 07/05/16 0039 Medications Medications Current Medications Ondansetron HCl (Zofran Inj) 4 mg Q6H PRN IV NAUSEA AND/OR VOMITING; Start at 02:00 Acetaminophen (Tylenol Tab) 650 mg Q6H PRN PO PAIN LEVEL 1-3 OR FEVER; Start at 02:00 Morphine Sulfate (morphine) 2 mg Q4H PRN IV PAIN LEVEL 7-10 Last administered on 07/08/16 10:21; Admin Dose 2 MG; Start 07/04/16 at 02:00 Enoxaparin Sodium (Lovenox) 40 mg DAILY SC Last administered on 07/08/16 11:57 ; Admin Dose 40 MG; Start 07/04/16 at 09:00 Aspirin (Aspirin) 81 mg DAILY PO Last administered on 07/08/16 09:28; Admin Dose 81 MG; Start 07/04/16 at 09:00 Bupropion HCl (Wellbutrin Sr) 150 mg DAILY PO Last administered on 07/08/16 09 :28; Admin Dose 150 MG; Start 07/04/16 at 09:00 Cyclosporine (Restasis) 1 drop Q12 BOTH EYES Last administered on 07/08/16 20: 28; Admin Dose 1 DROP; Start 07/04/16 at 09:00 Diazepam (Valium) 5 mg Q8 PO Last administered on 07/08/16 21:24; Admin Dose 5 MG; Start 07/04/16 at 06:00 Divalproex Sodium (Depakote) 125 mg BID PO Last administered on 07/08/16 20:27 ; Admin Dose 125 MG; Start 07/04/16 at 09:00 Donepezil HCl (Aricept) 10 mg DAILY PO Last administered on 07/08/16 09:29; Admin Dose 10 MG; Start 07/04/16 at 09:00 Ferrous Sulfate (Ferrous Sulfate (Ec)) 325 mg TID PO Last administered on 20:28; Admin Dose 325 MG; Start 07/04/16 at 09:00 Folic Acid (Folic Acid) 1 mg DAILY PO Last administered on 07/08/16 09:29; Admin Dose 1 MG; Start 07/04/16 at 09:00 Acetaminophen/ Hydrocodone Bitart ([place] (5/325)) 1 tab Q8 PRN PO PAIN Last administered on 07/08/16 13:54; Admin Dose 1 TAB; Start 07/04/16 at 02:00 Losartan Potassium (Cozaar) 100 mg DAILY PO Last administered on 07/08/16 09: 29; Admin Dose 100 MG; Start 07/04/16 at 09:00 Meclizine HCl (Antivert) 25 mg TID PO Last administered on 07/08/16 20:28; Admin Dose 25 MG; Start 07/04/16 at 09:00 Pregabalin (Lyrica) 50 mg BID PO Last administered on 07/08/16 21:22; Admin Dose 50 MG; Start 07/04/16 at 09:00 Memantine (Namenda) 10 mg BID PO Last administered on 07/08/16 20:28; Admin Dose 10 MG; Start 07/04/16 at 21:00 Lorazepam (Ativan) 1 mg Q6H PRN IV Anxiety; Start 07/04/16 at 17:00 JERAMY OTTO MD July 08, 2016 22:58
[2016-07-09] MEDS: HYDROCODONE/APAP (5/325) TAB PO PRN (00:09)
[2016-07-09] MEDS: morphine 2 MG INJ IV PRN ×2 (05:19→10:45)
[2016-07-09] MEDS: DIAZEPAM 5 MG TAB PO SCH ×3 (05:21→22:29)
[2016-07-09 07:59] VITALS: BP 136/70; RESP 19
[2016-07-09] MEDS: PREGABALIN 25 MG CAP PO SCH ×2 (09:17→21:22)
[2016-07-09] MEDS: FERROUS SULFATE (EC) 325 MG TAB PO SCH ×3 (09:17→21:22)
[2016-07-09] MEDS: BUPROPION (SR) 150 MG TAB PO SCH (09:17)
[2016-07-09] MEDS: MECLIZINE 25 MG TAB PO SCH ×3 (09:17→21:22)
[2016-07-09] MEDS: DIVALPROEX (EC) 125 MG TAB PO SCH ×2 (09:17→21:22)
[2016-07-09] MEDS: MEMANTINE 10 MG TAB PO SCH ×2 (09:18→21:22)
[2016-07-09] MEDS: DONEPEZIL 10 MG TAB PO SCH (09:18)
[2016-07-09] MEDS: LOSARTAN 50 MG TAB PO SCH (09:18)
[2016-07-09] MEDS: ASPIRIN 81 MG TAB PO SCH (09:18)
[2016-07-09] MEDS: CYCLOSPORINE 0.05% OPH DROPERETTE BOTH EYES SCH ×2 (09:21→21:00)
[2016-07-09] MEDS: FOLIC ACID 1 MG TAB PO SCH (09:21)
[2016-07-09] MEDS: ENOXAPARIN 40 MG/0.4 ML SYG SC SCH (09:43)
--- NOTE | 2016-07-09 12:43 | PN ---
Date/Time of Note Date/Time of Note DATE: 07/09/16 TIME: 12:40 Assessment/Plan VTE Prophylaxis VTE Prophylaxis Intervention: LMWH Lines/Catheters IV Catheter Type (from Nrsg): Saline Lock Urinary Cath still in place: No Assessment/Plan Assessment/Plan 1. intractable bilateral hip pain, not able to ambulate 2. Dementia, chronic 3. Hypertension, controlled 4. Seizure disorder, stable 5. DVT prophylaxis: lovenox start MS contin 15 mg pO BID, IV morphine prn Orhto consult Dr. Wei barrios to see pt X ray bilateral hip 2 views for hip pain Subjective 24 Hr Interval Summary Free Text/Dictation c/o bilateral hip pain, pain not controlled with IV morphine Exam/Review of Systems Vital Signs Vitals Vital Signs Date Time Temp Pulse Resp B/P Pulse Ox O2 Delivery O2 Flow Rate FiO2 07/09/16 07:59 97.5 79 19 136/70 95 07/08/16 20:00 Nasal Cannula 2.0 Intake and Output 07/08/16 07/08/16 07/09/16 15:00 23:00 07:00 Intake Total 960 ml 240 ml Output Total 1500 ml Balance 960 ml -1260 ml Exam Constitutional: alert Psych: no complaints Head: normocephalic Eyes: nl conjunctiva Respiratory: clear to auscultation, diminished breath sounds, normal air movement Cardiovascular: regular rate and rhythm Gastrointestinal: distended, soft Neurological: VAN DRIVER II-XII intact Results Result Diagram: 07/05/16 0630 07/05/16 0039 Medications Medications Current Medications Ondansetron HCl (Zofran Inj) 4 mg Q6H PRN IV NAUSEA AND/OR VOMITING; Start at 02:00 Acetaminophen (Tylenol Tab) 650 mg Q6H PRN PO PAIN LEVEL 1-3 OR FEVER; Start at 02:00 Morphine Sulfate (morphine) 2 mg Q4H PRN IV PAIN LEVEL 7-10 Last administered on 07/09/16 05:19; Admin Dose 2 MG; Start 07/04/16 at 02:00 Enoxaparin Sodium (Lovenox) 40 mg DAILY SC Last administered on 07/09/16 09:43 ; Admin Dose 40 MG; Start 07/04/16 at 09:00 Aspirin (Aspirin) 81 mg DAILY PO Last administered on 07/09/16 09:18; Admin Dose 81 MG; Start 07/04/16 at 09:00 Bupropion HCl (Wellbutrin Sr) 150 mg DAILY PO Last administered on 07/09/16 09 :17; Admin Dose 150 MG; Start 07/04/16 at 09:00 Cyclosporine (Restasis) 1 drop Q12 BOTH EYES Last administered on 07/09/16 09: 21; Admin Dose 1 DROP; Start 07/04/16 at 09:00 Diazepam (Valium) 5 mg Q8 PO Last administered on 07/09/16 05:21; Admin Dose 5 MG; Start 07/04/16 at 06:00 Divalproex Sodium (Depakote) 125 mg BID PO Last administered on 07/09/16 09:17 ; Admin Dose 125 MG; Start 07/04/16 at 09:00 Donepezil HCl (Aricept) 10 mg DAILY PO Last administered on 07/09/16 09:18; Admin Dose 10 MG; Start 07/04/16 at 09:00 Ferrous Sulfate (Ferrous Sulfate (Ec)) 325 mg TID PO Last administered on 09:17; Admin Dose 325 MG; Start 07/04/16 at 09:00 Folic Acid (Folic Acid) 1 mg DAILY PO Last administered on 07/09/16 09:21; Admin Dose 1 MG; Start 07/04/16 at 09:00 Acetaminophen/ Hydrocodone Bitart ([place] (5/325)) 1 tab Q8 PRN PO PAIN Last administered on 07/09/16 00:09; Admin Dose 1 TAB; Start 07/04/16 at 02:00 Losartan Potassium (Cozaar) 100 mg DAILY PO Last administered on 07/09/16 09: 18; Admin Dose 100 MG; Start 07/04/16 at 09:00 Meclizine HCl (Antivert) 25 mg TID PO Last administered on 07/09/16 09:17; Admin Dose 25 MG; Start 07/04/16 at 09:00 Pregabalin (Lyrica) 50 mg BID PO Last administered on 07/09/16 09:17; Admin Dose 50 MG; Start 07/04/16 at 09:00 Memantine (Namenda) 10 mg BID PO Last administered on 5/20/17at 09:18; Admin Dose 10 MG; Start 07/04/16 at 21:00 Lorazepam (Ativan) 1 mg Q6H PRN IV Anxiety; Start 07/04/16 at 17:00 Morphine Sulfate (Ms Contin (Er)) 15 mg BID PO ; Start 07/09/16 at 12:00 JERAMY OTTO MD July 09, 2016 12:42
[2016-07-09] MEDS: morphine (ER) 15 MG TAB PO SCH ×2 (12:44→21:22)
[2016-07-09 20:00] VITALS: BP 127/62; RESP 20
[2016-07-10] MEDS: DIAZEPAM 5 MG TAB PO SCH ×2 (05:35→14:00)
[2016-07-10 07:48] VITALS: BP 132/59; RESP 18
[2016-07-10] MEDS: BUPROPION (SR) 150 MG TAB PO SCH (09:43)
[2016-07-10] MEDS: FERROUS SULFATE (EC) 325 MG TAB PO SCH ×3 (09:43→20:52)
[2016-07-10] MEDS: MEMANTINE 10 MG TAB PO SCH (09:43)
[2016-07-10] MEDS: DONEPEZIL 10 MG TAB PO SCH (09:43)
[2016-07-10] MEDS: DIVALPROEX (EC) 125 MG TAB PO SCH (09:43)
[2016-07-10] MEDS: morphine (ER) 15 MG TAB PO SCH (09:44)
[2016-07-10] MEDS: PREGABALIN 25 MG CAP PO SCH (09:44)
[2016-07-10] MEDS: LOSARTAN 50 MG TAB PO SCH (09:44)
[2016-07-10] MEDS: ASPIRIN 81 MG TAB PO SCH (09:44)
[2016-07-10] MEDS: MECLIZINE 25 MG TAB PO SCH ×2 (09:44→13:00)
[2016-07-10] MEDS: FOLIC ACID 1 MG TAB PO SCH (09:44)
[2016-07-10] MEDS: ENOXAPARIN 40 MG/0.4 ML SYG SC SCH (09:55)
[2016-07-10] MEDS: CYCLOSPORINE 0.05% OPH DROPERETTE BOTH EYES SCH ×2 (11:45→20:52)
--- NOTE | 2016-07-10 16:18 | PN ---
Date/Time of Note Date/Time of Note DATE: 07/10/16 TIME: 16:15 Assessment/Plan VTE Prophylaxis VTE Prophylaxis Intervention: LMWH Lines/Catheters IV Catheter Type (from Nrsg): Saline Lock Urinary Cath still in place: No Assessment/Plan Assessment/Plan 1. intractable bilateral hip pain, not able to ambulate 2. Dementia, chronic 3. Hypertension, controlled 4. Seizure disorder, stable 5. DVT prophylaxis: lovenox 6. Confusion, aletered mental status- poly pharmacy, pt has been on mulitple medications that can cause sedation, dizziness d/v IV ativan,d/c antivert, D/c valium X ray hip reviewed, will order MRI LS spine to evaluate for spinal stenosis pain controlld with MS contin 15 mg pO BID, IV morphine prn Orhto consult In Gaby barrios to see pt- I consulted him yesterday, has not been seen yet will follow up Subjective 24 Hr Interval Summary Free Text/Dictation pt has been sleeping all day, not ambulating , Po diet tolerated Exam/Review of Systems Vital Signs Vitals Vital Signs Date Time Temp Pulse Resp B/P Pulse Ox O2 Delivery O2 Flow Rate FiO2 07/10/16 11:47 99.5 92 Nasal Cannula 3.0 07/10/16 07:48 83 18 132/59 Intake and Output 07/09/16 07/09/16 07/10/16 15:00 23:00 07:00 Intake Total 760 ml 450 ml Output Total 600 ml Balance 760 ml -150 ml Exam Constitutional: sleepy, arousable Respiratory: clear to auscultation, diminished breath sounds, normal air movement Cardiovascular: regular rate and rhythm Gastrointestinal: distended, soft Neurological: BOOSTER OPERATOR II-XII intact Medications Medications Current Medications Ondansetron HCl (Zofran Inj) 4 mg Q6H PRN IV NAUSEA AND/OR VOMITING; Start at 02:00 Acetaminophen (Tylenol Tab) 650 mg Q6H PRN PO PAIN LEVEL 1-3 OR FEVER; Start at 02:00 Morphine Sulfate (morphine) 2 mg Q4H PRN IV PAIN LEVEL 7-10 Last administered on 07/09/16 10:45; Admin Dose 2 MG; Start 07/04/16 at 02:00 Enoxaparin Sodium (Lovenox) 40 mg DAILY SC Last administered on 07/10/16 09:55 ; Admin Dose 40 MG; Start 07/04/16 at 09:00 Aspirin (Aspirin) 81 mg DAILY PO Last administered on 07/10/16 09:44; Admin Dose 81 MG; Start 07/04/16 at 09:00 Bupropion HCl (Wellbutrin Sr) 150 mg DAILY PO Last administered on 07/10/16 09 :43; Admin Dose 150 MG; Start 07/04/16 at 09:00 Cyclosporine (Restasis) 1 drop Q12 BOTH EYES Last administered on 07/10/16 11: 45; Admin Dose 1 DROP; Start 07/04/16 at 09:00 Diazepam (Valium) 5 mg Q8 PO Last administered on 07/10/16 05:35; Admin Dose 5 MG; Start 07/04/16 at 06:00 Divalproex Sodium (Depakote) 125 mg BID PO Last administered on 07/10/16 09:43 ; Admin Dose 125 MG; Start 07/04/16 at 09:00 Donepezil HCl (Aricept) 10 mg DAILY PO Last administered on 07/10/16 09:43; Admin Dose 10 MG; Start 07/04/16 at 09:00 Ferrous Sulfate (Ferrous Sulfate (Ec)) 325 mg TID PO Last administered on 13:40; Admin Dose 325 MG; Start 07/04/16 at 09:00 Folic Acid (Folic Acid) 1 mg DAILY PO Last administered on 07/10/16 09:44; Admin Dose 1 MG; Start 07/04/16 at 09:00 Acetaminophen/ Hydrocodone Bitart ([place] (5/325)) 1 tab Q8 PRN PO PAIN Last administered on 07/09/16 00:09; Admin Dose 1 TAB; Start 07/04/16 at 02:00 Losartan Potassium (Cozaar) 100 mg DAILY PO Last administered on 07/10/16 09: 44; Admin Dose 100 MG; Start 07/04/16 at 09:00 Meclizine HCl (Antivert) 25 mg TID PO Last administered on 07/10/16 09:44; Admin Dose 25 MG; Start 07/04/16 at 09:00 Pregabalin (Lyrica) 50 mg BID PO Last administered on 07/10/16 09:44; Admin Dose 50 MG; Start 07/04/16 at 09:00 Memantine (Namenda) 10 mg BID PO Last administered on 07/10/16 09:43; Admin Dose 10 MG; Start 07/04/16 at 21:00 Lorazepam (Ativan) 1 mg Q6H PRN IV Anxiety; Start 07/04/16 at 17:00 Morphine Sulfate (Ms Contin (Er)) 15 mg BID PO Last administered on 07/10/16 09:44; Admin Dose 15 MG; Start 07/09/16 at 12:00 JERAMY OTTO MD July 10, 2016 16:18
[2016-07-10] MEDS ORDERED: NALOXONE (0.4 MG/ML) INJ IV ONE (18:30)
[2016-07-10 18:48] LABS: Allen Test ACCEPTAB; Arterial Base Excess 0.8 mmol/L (-3.0-3); Arterial COHb 0.3 % (0.0-3.0); Arterial Fraction of Oxyhgb 93.7 % (93.0-99.0); Arterial HCO3 26.9 mmol/L (22.0-26.0); Arterial MetHb 0.2 % (0.0-1.5); MODE NASAL CANNULA
[2016-07-10 19:40] VITALS: BP 145/65; RESP 22
--- NOTE | 2016-07-10 19:47 | CONS ---
DATE OF ADMISSION: 07/04/2016 DATE OF CONSULTATION: ORTHOPEDIC SURGERY CONSULTATION HISTORY OF PRESENT ILLNESS: The patient is an 85-year-old Turkmen-speaking female who was admitted on 07/04/2016 when she was brought into the emergency room because of increasing anxiety and weakn ess. There were questionable symptoms of stroke; however, neurology evaluation ruled out any focal neurologic deficit. Orthopedic surgery was consulted because the patient was complaining of low back pain around 017. She has a history of low back pain in the past, according to the family members. PAST MEDICAL HISTORY: She is known to have dementia, depression, hypertension, anemia and seizure d isorder. PHYSICAL EXAMINATION: My examination revealed an 85-year-old female, supine position in bed. Her p articipation in the history taking and physical examination was less than ideal because of her demen tia and mental status. She denies any low back pain at this time. Deep tendon reflexes are normal and equal bilaterally. There were no obvious sensory changes or motor weakness detectable. Straight leg raising was negative up to 80 degrees bilaterally. DIAGNOSTIC STUDIES: Recent x-rays of spine were not available for my review; however, the x-rays of spine that were obtained in 2016 were available for my review and the x-rays of the spine obtained in 2016 and she was showing signs of mild spondylosis with a possible hint of spondylolisthesis at L4 over L5. DIAGNOSTIC IMPRESSION: History of low back pain, without any major radiologic findings and without a ny signs of radiculopathy. RECOMMENDATIONS FOR MANAGEMENT: Continue observation and review the MRI scan when it is available. Dictated By: RHONDA DONOVAN/STEWART Conf#: [id number] DID#: [id number]
[2016-07-11 05:46] LABS: ADD SCAN DIFF NO
[2016-07-11 06:01] LABS: BASOPHILS % 0.4 % (0.0-2.0); EOSINOPHILS # 0.1 10^3/ul (0.0-0.5); EOSINOPHILS % 0.8 % (0.0-7.0); HEMOGLOBIN 12.8 g/dl (12.0-16.0); LYMPHOCYTES % 28.9 % (15.0-51.0); MEAN CORPUSCULAR HEMOGLOBIN 31.4 pg (29.0-33.0); MEAN CORPUSCULAR HGB CONC 33.7 g/dl (32.0-37.0); MEAN CORPUSCULAR VOLUME 93.1 fl (82.0-101.0); MEAN PLATELET VOLUME 10.9 fl (7.4-10.4); MONOCYTE # 0.8 10^3/ul (0.3-0.9); MONOCYTES % 11.7 % (0.0-11.0); NEUTROPHILS % 57.2 % (39.0-77.0); PLATELET COUNT 134 10^3/UL (140-415); RED BLOOD COUNT 4.08 10^6/ul (4.20-5.40); RED CELL DISTRIBUTION WIDTH 13.2 % (11.5-14.5); WHITE BLOOD COUNT 7.1 10^3/ul (4.8-10.8)
[2016-07-11 06:13] LABS: INR 1.08; PT RATIO 1.1
[2016-07-11 06:14] LABS: PARTIAL THROMBOPLASTIN TIME 31.5 Sec (25.0-35.0)
[2016-07-11 06:58] LABS: ALBUMIN 3.3 g/dl (3.3-4.9); POTASSIUM 4.3 mmol/L (3.5-5.1)
[2016-07-11 07:00] LABS: BILIRUBIN,INDIRECT 0.4 mg/dl (0-1.1); BILIRUBIN,TOTAL 0.4 mg/dl (0.2-1.3); CREATININE 0.91 mg/dl (0.44-1.00)
[2016-07-11 07:01] LABS: ALBUMIN/GLOBULIN RATIO 1.17; CALCIUM 8.9 mg/dl (8.4-10.2); TOTAL PROTEIN 6.1 g/dl (6.1-8.1)
--- NOTE | 2016-07-11 08:06 | RADRPT ---
PROCEDURE: XR Pelvis and bilateral hips. CLINICAL INDICATION: Left hip pain TECHNIQUE: 2 views of the pelvis and bilateral hips are available for review. COMPARISON: No prior studies are available for comparison. FINDINGS: There is mild bilateral hip joint space narrowing and acetabular osteophyte formation. No acute fra cture or dislocation is identified. Bony mineralization is normal. No radiodense foreign body is i dentified. Indeterminate calcific densities project adjacent to the left hip, possibly representing foci of soft tissue calcification or heterotopic ossification. There is degenerative spondylosis o f the lower lumbar spine. IMPRESSION: 1. No evidence of acute fracture or dislocation. 2. Mild bilateral hip osteoarthrosis. 3. Indeterminate calcific densities are seen within the soft tissues adjacent to the left hip, poss ibly representing heterotopic ossification. RPTAT: PP .Fidel Andino MD, MD Date Time Electronically viewed and signed by .Fidel Andino MD, MD on 07/11/2016 08:06 .R/
[2016-07-11 08:11] VITALS: BP 123/61; RESP 20
[2016-07-11] MEDS: FOLIC ACID 1 MG TAB PO SCH (09:36)
[2016-07-11] MEDS: FERROUS SULFATE (EC) 325 MG TAB PO SCH ×3 (09:36→21:56)
[2016-07-11] MEDS: ASPIRIN 81 MG TAB PO SCH (09:36)
[2016-07-11] MEDS: LOSARTAN 50 MG TAB PO SCH (09:38)
[2016-07-11] MEDS: ENOXAPARIN 40 MG/0.4 ML SYG SC SCH (09:43)
[2016-07-11] MEDS: CYCLOSPORINE 0.05% OPH DROPERETTE BOTH EYES SCH ×2 (09:44→21:00)
--- NOTE | 2016-07-11 15:29 | PN ---
Date/Time of Note Date/Time of Note DATE: 07/11/16 TIME: 15:24 Assessment/Plan VTE Prophylaxis VTE Prophylaxis Intervention: LMWH Lines/Catheters IV [facility] Saline Lock Urinary Cath still in place: No Assessment/Plan Chief Complaint/Hosp Course Assessment and plan 1. Back pain with difficulty with ambulation. MRI of the spine is pending. Follow-up with result. Of note orthopedic surgeon is following. Continue with analgesics and physical therapy for now. 2. History of dementia. Patient currently on patient reportedly does take Namenda and benazepril at home. Medications on hold considering patient's reported worsening level of consciousness. 3. Altered mental status. Likely secondary to polypharmacy. Benzodiazepines on hold for now. Monitor for improvement of mental status. 4. Essential hypertension. Appears stable at present. Continue antihypertensives and adjust needed 5. History of seizure disorder. No active issue noted at this time. Patient of note per home medication reconciliation does take divalproex sodium at home. Is on hold for now due to reported altered mental status. Continue to monitor. Disposition and plan: Awaiting MRI of the lumbar spine. Await physical therapy follow-up. Follow-up with orthopedic surgeon recommendations. Patient family member requesting for possible transfer to different hospital facility. Will get case management involved. Discussed plan of care with Dr. French Problems: Subjective 24 Hr Interval Summary Free Text/Dictation seen sitting in chair. family at bedside. reports having back pain Exam/Review of Systems Vital Signs Vitals Vital Signs Date Time Temp Pulse Resp B/P Pulse Ox O2 Delivery O2 Flow Rate FiO2 07/11/16 09:00 Nasal Cannula 3.0 07/11/16 08:11 97.5 77 20 123/61 95 Intake and Output 07/10/16 07/10/16 07/11/16 15:00 23:00 07:00 Intake Total 240 ml 380 ml Output Total 1100 ml Balance 240 ml -720 ml Exam Constitutional: alert Psych: nl mood/affect Head: normocephalic Neck: No jvd Respiratory: clear to auscultation Cardiovascular: regular rate and rhythm Gastrointestinal: non-tender, soft Musculoskeletal: No nl gait and stance Extremities: edema (minimal ble ) Neurological: nl speech Results Result Diagram: 07/11/16 0455 07/11/16 0455 Results 24 hrs Laboratory Tests Test 07/10/16 18:20 07/11/16 04:55 Blood Gas Specimen Source Blood arterial Arterial Blood Date Drawn 07/10/2016 6:40:31 PM Arterial Blood pH (Temp corrected) 7.363 Arterial Blood pCO2 (Temp correct) 48.3 H Arterial Blood pO2 (Temp corrected) 74.2 L Arterial Blood HCO3 26.9 H Arterial Blood Base Excess 0.8 Arterial Blood Oxygen Saturation 94.2 L [place] Test ACCEPTAB Arterial Blood Gas Puncture Site Right Radial Arterial Blood Carboxyhemoglobin 0.3 Arterial Blood Methemoglobin 0.2 Blood Gas A-a O2 Differential 83.0 H Oxyhemoglobin Percent 93.7 Total Hemoglobin 14.0 Blood Gas Temperature 37.0 Blood Gas Modality NASAL CANNULA FiO2 30.0 Blood Gas Notified Whom MA Blood Gas Notified Time 07/10/2016 6:48:03 PM White Blood Count 7.1 # Red Blood Count 4.08 L Hemoglobin 12.8 Hematocrit 38.0 Mean Corpuscular Volume 93.1 Mean Corpuscular Hemoglobin 31.4 Mean Corpuscular Hemoglobin Concent 33.7 Red Cell Distribution Width 13.2 Platelet Count 134 L Mean Platelet Volume 10.9 H Neutrophils % 57.2 Lymphocytes % 28.9 Monocytes % 11.7 H Eosinophils % 0.8 Basophils % 0.4 Nucleated Red Blood Cells % 0.0 Neutrophils # 4.0 Lymphocytes # 2.0 Monocytes # 0.8 Eosinophils # 0.1 Basophils # 0.0 Nucleated Red Blood Cells # 0.0 Prothrombin Time 14.0 Prothrombin Time Ratio 1.1 INR International Normalized Ratio 1.08 Activated Partial Thromboplast Time 31.5 Sodium Level 134 L Potassium Level 4.3 Chloride Level 95 L Carbon Dioxide Level 28 Anion Gap 15 Blood Urea Nitrogen 18 Creatinine 0.91 Glucose Level 111 Calcium Level 8.9 Total Bilirubin 0.4 Direct Bilirubin 0.00 Indirect Bilirubin 0.4 Aspartate Amino Transf (AST/SGOT) 57 H Alanine Aminotransferase (ALT/SGPT) 80 H Alkaline Phosphatase 92 Ammonia 27 Total Protein 6.1 Albumin 3.3 Globulin 2.80 Albumin/Globulin Ratio 1.17 Medications Medications Current Medications Ondansetron HCl (Zofran Inj) 4 mg Q6H PRN IV NAUSEA AND/OR VOMITING; Start at 02:00 Acetaminophen (Tylenol Tab) 650 mg Q6H PRN PO PAIN LEVEL 1-3 OR FEVER Last administered on 07/11/16 08:51; Admin Dose 650 MG; Start 07/04/16 at 02:00 Morphine Sulfate (morphine) 2 mg Q4H PRN IV PAIN LEVEL 7-10 Last administered on 07/09/16 10:45; Admin Dose 2 MG; Start 07/04/16 at 02:00 Enoxaparin Sodium (Lovenox) 40 mg DAILY SC Last administered on 07/11/16 09:43 ; Admin Dose 40 MG; Start 07/04/16 at 09:00 Aspirin (Aspirin) 81 mg DAILY PO Last administered on 07/11/16 09:36; Admin Dose 81 MG; Start 07/04/16 at 09:00 Bupropion HCl (Wellbutrin Sr) 150 mg DAILY PO Last administered on 07/10/16 09 :43; Admin Dose 150 MG; Start 07/04/16 at 09:00; Status Future Hold Cyclosporine (Restasis) 1 drop Q12 BOTH EYES Last administered on 07/11/16 09: 44; Admin Dose 1 DROP; Start 07/04/16 at 09:00 Divalproex Sodium (Depakote) 125 mg BID PO Last administered on 07/10/16 09:43 ; Admin Dose 125 MG; Start 07/04/16 at 09:00; Status Future Hold Donepezil HCl (Aricept) 10 mg DAILY PO Last administered on 07/10/16 09:43; Admin Dose 10 MG; Start 07/04/16 at 09:00; Status Future Hold Ferrous Sulfate (Ferrous Sulfate (Ec)) 325 mg TID PO Last administered on 14:07; Admin Dose 325 MG; Start 07/04/16 at 09:00 Folic Acid (Folic Acid) 1 mg DAILY PO Last administered on 07/11/16 09:36; Admin Dose 1 MG; Start 07/04/16 at 09:00 Acetaminophen/ Hydrocodone Bitart ([place] (5/325)) 1 tab Q8 PRN PO PAIN Last administered on 07/09/16 00:09; Admin Dose 1 TAB; Start 07/04/16 at 02:00 Pregabalin (Lyrica) 50 mg BID PO Last administered on 07/10/16 09:44; Admin Dose 50 MG; Start 07/04/16 at 09:00; Status Future Hold Memantine (Namenda) 10 mg BID PO Last administered on 07/10/16 09:43; Admin Dose 10 MG; Start 07/04/16 at 21:00; Status Future Hold Losartan Potassium (Cozaar) 50 mg DAILY PO Last administered on 07/11/16 09:38 ; Admin Dose 50 MG; Start 07/11/16 at 09:00 DIDI BLACKMON July 11, 2016 15:29
--- NOTE | 2016-07-11 16:01 | RADRPT ---
PROCEDURE: MRI lumbar spine without contrast. CLINICAL INDICATION: Intractable back pain, evaluate spinal stenosis TECHNIQUE: Multiplanar MRI of the lumbar spine without contrast was performed on a 3.0 T scanner ut ilizing the following sequences: T1-weighted, T2-weighted dual echo. COMPARISON: Lumbar spine radiographs 03/17/2015 FINDINGS: There is mild dextroconvex lumbar scoliosis with preservation of the lordosis of the lumbar spine. There is mild grade 1 anterolisthesis of L4 on L5 without associated spondylolysis seen. The verteb ral bodies are maintained in height. No fracture or destructive osseous lesion is seen. Probable h emangiomas are noted in the L1 and L2 bodies and there is a 1 cm decreased signal intensity lesion i n the L2 body, which may be a bone island. There is anterior spondylosis, more pronounced at L1-2 th rough L3-4. Intervertebral disk spaces are grossly maintained in height with relative decreased dis k intranuclear T2-weighted signal intensity at multiple levels. The tip of the conus medullaris is visible at the L1 level and appears unremarkable. Partially imaged is a cystic lesion in the upper right pelvis measuring at least 4 cm. Also noted are bilateral renal cysts. T12-L1: There is a subtle, approximately 2 mm left central disk extrusion extending slightly cephala d. There is no central canal stenosis or foraminal narrowing. L1-L2: There is mild posterior disk bulging. There is no central canal stenosis or foraminal narro wing. L2-L3: There is mild posterior disk bulging. There is no central canal stenosis or foraminal narro wing. L3-L4: There is posterior disk bulging and a subtle approximately 2 mm focal central disk protrusio n. There is mild facet arthropathy with ligamentum flavum hypertrophy. There is mild-moderate cent ral canal stenosis. There is mild right foraminal narrowing. L4-L5: There is posterior disk bulging with an annular high intensity zone/fissure on the left, and facet arthropathy with ligamentum flavum hypertrophy. There is moderate to severe central canal st enosis with lateral recess narrowing, greater on the right. There may be compression of the jose l ing right L5 nerve root.. There is mild bilateral foraminal narrowing. L5-S1: There is mild posterior disk bulging. There is facet arthropathy with ligamentum flavum hyp ertrophy. No significant central canal stenosis or foraminal narrowing is identified. IMPRESSION: 1. At L4-5, moderate to severe central canal stenosis with lateral recess narrowing, greater on the right. Possible compression of the traversing right L5 nerve root. Mild bilateral foraminal narro wing. 2. At L3-4, mild to moderate central canal stenosis with subtle 2 mm central disk protrusion at thi s level. Mild right foraminal narrowing. 3. At T12-L1, subtle 2 mm left central disk extrusion without central stenosis. 4. Lumbar spondylosis, with grade 1 anterolisthesis at L4-5, and mild dextroconvex lumbar scoliosis . 5. Partially imaged right pelvic cystic lesion. This could be further assessed with ultrasound. RPTAT: VV .Everardo Manzo MD, Date Time Electronically viewed and signed by .Everardo Manzo MD, on 07/11/2016 16:00 .O/
[2016-07-11] MEDS: IBUPROFEN 400 MG TAB PO PRN ×2 (16:28→21:56)
[2016-07-11] MEDS ORDERED: METHYLPREDNISOLONE (MEDROL) DOSE PACK PO SCH (19:00)
[2016-07-11 20:00] VITALS: BP 118/59; RESP 20
[2016-07-11] MEDS ORDERED: METHYLPREDNISOLONE 4 MG TAB PO SCH (20:00)
[2016-07-11] MEDS: DIVALPROEX (EC) 125 MG TAB PO SCH (21:00)
[2016-07-11] MEDS: PREGABALIN 25 MG CAP PO SCH (21:00)
[2016-07-11] MEDS: MEMANTINE 10 MG TAB PO SCH (21:00)
[2016-07-12] MEDS: CYCLOSPORINE 0.05% OPH DROPERETTE BOTH EYES SCH ×3 (00:36→22:10)
[2016-07-12] MEDS: IBUPROFEN 400 MG TAB PO PRN ×2 (06:21→19:37)
[2016-07-12 07:46] VITALS: BP 126/58; RESP 20
[2016-07-12] MEDS: METHYLPREDNISOLONE 4 MG TAB PO SCH (07:57)
[2016-07-12] MEDS: MEMANTINE 10 MG TAB PO SCH ×2 (08:47→22:07)
[2016-07-12] MEDS: DONEPEZIL 10 MG TAB PO SCH (08:47)
[2016-07-12] MEDS: BUPROPION (SR) 150 MG TAB PO SCH (08:47)
[2016-07-12] MEDS: FOLIC ACID 1 MG TAB PO SCH (08:47)
[2016-07-12] MEDS: FERROUS SULFATE (EC) 325 MG TAB PO SCH ×3 (08:47→22:08)
[2016-07-12] MEDS: DIVALPROEX (EC) 125 MG TAB PO SCH ×2 (08:47→22:08)
[2016-07-12] MEDS: ASPIRIN 81 MG TAB PO SCH (08:47)
[2016-07-12] MEDS: ENOXAPARIN 40 MG/0.4 ML SYG SC SCH (08:49)
[2016-07-12] MEDS: PREGABALIN 25 MG CAP PO SCH ×2 (08:52→22:10)
[2016-07-12] MEDS: LOSARTAN 50 MG TAB PO SCH (08:55)
[2016-07-12] MEDS ORDERED: METHYLPREDNISOLONE 4 MG TAB PO SCH ×3 (12:45→21:00)
[2016-07-12 12:53] VITALS: BP 132/62; PULSE 82; RESP 18
--- NOTE | 2016-07-12 14:12 | PN ---
Date/Time of Note Date/Time of Note DATE: 07/12/16 TIME: 14:04 Assessment/Plan VTE Prophylaxis VTE Prophylaxis Intervention: LMWH Lines/Catheters IV Catheter Type (from Nrsg): Saline Lock Urinary Cath still in place: No Assessment/Plan Chief Complaint/Hosp Course 1. Back pain with difficulty with ambulation MRI of the spine shows mod to severe canal stenosis at L4-L5 Ortho consult appreciated, rec is for Steroids Pain control 2. Acute Encephalopathy on Chronic dementia likely 2/2 polypharmacy-improved mentation now near baseline cont Home Rx, Benzos have been D/C'd 3. Debility 2/2 Back pain Transfer to SNF with PT until pt can safely ambulate and then will return home 4. Essential hypertension-stable Continue antihypertensives and adjust needed 5. History of seizure disorder- No active issue noted at this time Continue to monitor PPx- Lovenox Problems: Subjective 24 Hr Interval Summary Constitutional: no complaints Exam/Review of Systems Vital Signs Vitals Vital Signs Date Time Temp Pulse Resp B/P Pulse Ox O2 Delivery O2 Flow Rate FiO2 07/12/16 12:53 98.0 82 18 132/62 95 Room Air 07/12/16 11:04 2.0 Intake and Output 07/11/16 07/11/16 07/12/16 15:00 23:00 07:00 Intake Total 240 ml Output Total 600 ml Balance -360 ml Exam Constitutional: alert Respiratory: clear to auscultation Cardiovascular: regular rate and rhythm Gastrointestinal: soft, No distended Musculoskeletal: nl extremities to inspection Results Result Diagram: 07/11/16 0455 07/11/16 0455 Medications Medications Current Medications Ondansetron HCl (Zofran Inj) 4 mg Q6H PRN IV NAUSEA AND/OR VOMITING; Start at 02:00 Acetaminophen (Tylenol Tab) 650 mg Q6H PRN PO PAIN LEVEL 1-3 OR FEVER Last administered on 07/11/16 08:51; Admin Dose 650 MG; Start 07/04/16 at 02:00 Morphine Sulfate (morphine) 2 mg Q4H PRN IV PAIN LEVEL 7-10 Last administered on 07/09/16 10:45; Admin Dose 2 MG; Start 07/04/16 at 02:00 Enoxaparin Sodium (Lovenox) 40 mg DAILY SC Last administered on 07/12/16 08:49 ; Admin Dose 40 MG; Start 07/04/16 at 09:00 Aspirin (Aspirin) 81 mg DAILY PO Last administered on 07/12/16 08:47; Admin Dose 81 MG; Start 07/04/16 at 09:00 Bupropion HCl (Wellbutrin Sr) 150 mg DAILY PO Last administered on 07/12/16 08 :47; Admin Dose 150 MG; Start 07/04/16 at 09:00; Status Future hold Cyclosporine (Restasis) 1 drop Q12 BOTH EYES Last administered on 07/12/16 08: 47; Admin Dose 1 DROP; Start 07/04/16 at 09:00 Divalproex Sodium (Depakote) 125 mg BID PO Last administered on 07/12/16 08:47 ; Admin Dose 125 MG; Start 07/04/16 at 09:00; Status Future hold Donepezil HCl (Aricept) 10 mg DAILY PO Last administered on 07/12/16 08:47; Admin Dose 10 MG; Start 07/04/16 at 09:00; Status Future hold Ferrous Sulfate (Ferrous Sulfate (Ec)) 325 mg TID PO Last administered on 12:56; Admin Dose 325 MG; Start 07/04/16 at 09:00 Folic Acid (Folic Acid) 1 mg DAILY PO Last administered on 07/12/16 08:47; Admin Dose 1 MG; Start 07/04/16 at 09:00 Acetaminophen/ Hydrocodone Bitart ([place] (5/325)) 1 tab Q8 PRN PO PAIN Last administered on 07/09/16 00:09; Admin Dose 1 TAB; Start 07/04/16 at 02:00 Pregabalin (Lyrica) 50 mg BID PO Last administered on 07/12/16 08:52; Admin Dose 50 MG; Start 07/04/16 at 09:00; Status Future hold Memantine (Namenda) 10 mg BID PO Last administered on 07/12/16 08:47; Admin Dose 10 MG; Start 07/04/16 at 21:00; Status Future hold Losartan Potassium (Cozaar) 50 mg DAILY PO Last administered on 07/12/16 08:55 ; Admin Dose 50 MG; Start 07/11/16 at 09:00 Ibuprofen (Motrin) 400 mg Q6H PRN PO PAIN OR TEMP ABOVE 38C Last administered on 07/12/16t 06:21; Admin Dose 400 MG; Start 07/11/16 at 16:00 Methylprednisolone (Medrol) 8 mg HS PO ; Start 07/12/16 at 21:00; Stop 07/12/16 at 21:01 Methylprednisolone (Medrol) 4 mg HS PO ; Start 07/13/16 at 21:00; Stop 07/15/16 at 21:01 JOLENE COBB July 12, 2016 14:12
[2016-07-12 20:00] VITALS: BP 147/68; RESP 22
[2016-07-13 06:32] LABS: MAGNESIUM 2.3 mg/dl (1.7-2.5); PHOSPHORUS 3.9 mg/dl (2.5-4.9)
[2016-07-13 06:41] LABS: ALBUMIN 3.5 g/dl (3.3-4.9); ALBUMIN/GLOBULIN RATIO 1.02; BILIRUBIN,INDIRECT 0.1 mg/dl (0-1.1); BILIRUBIN,TOTAL 0.1 mg/dl (0.2-1.3); CALCIUM 9.2 mg/dl (8.4-10.2); CREATININE 1.02 mg/dl (0.44-1.00); POTASSIUM 4.2 mmol/L (3.5-5.1); TOTAL PROTEIN 6.9 g/dl (6.1-8.1)
[2016-07-13 07:24] VITALS: BP 123/59; RESP 16
[2016-07-13] MEDS: METHYLPREDNISOLONE 4 MG TAB PO SCH (09:00)
[2016-07-13] MEDS: DIVALPROEX (EC) 125 MG TAB PO SCH (09:58)
[2016-07-13] MEDS: MEMANTINE 10 MG TAB PO SCH (09:58)
[2016-07-13] MEDS: CYCLOSPORINE 0.05% OPH DROPERETTE BOTH EYES SCH (09:58)
[2016-07-13] MEDS: DONEPEZIL 10 MG TAB PO SCH (09:59)
[2016-07-13] MEDS: FERROUS SULFATE (EC) 325 MG TAB PO SCH (09:59)
[2016-07-13] MEDS: LOSARTAN 50 MG TAB PO SCH (09:59)
[2016-07-13] MEDS: FOLIC ACID 1 MG TAB PO SCH (09:59)
[2016-07-13] MEDS: ASPIRIN 81 MG TAB PO SCH (09:59)
[2016-07-13] MEDS: PREGABALIN 25 MG CAP PO SCH (10:03)
[2016-07-13] MEDS: BUPROPION (SR) 150 MG TAB PO SCH (10:03)
[2016-07-13] MEDS: ENOXAPARIN 40 MG/0.4 ML SYG SC SCH (10:04)
[2016-07-13] MEDS: IBUPROFEN 400 MG TAB PO PRN (11:26)
[2016-07-13] MEDS ORDERED: METHYLPREDNISOLONE 4 MG TAB PO SCH (21:00)
--- NOTE | 2016-07-14 03:57 | DS ---
DATE OF ADMISSION: 07/04/2016 DATE OF DISCHARGE: 07/13/2016 DISCHARGE DIAGNOSES: 1. Back pain with difficulty ambulating. MRI of the spine does show severe canal stenosis L4-L5. Family does not want any aggressive care and does not want steroids at this time. The patient's izaiah k pain is controlled at this time. Discharge to SNF for rehabilitation. 2. Acute encephalopathy on chronic dementia, likely secondary to polypharmacy, now resolved. Menta tion is at baseline. 3. Debility secondary to back pain. Once again, transferred to SNF for PT. 4. Hypertension, stable. Continue home medications. 5. History of seizure disorder. No active issues at this time. HOSPITAL COURSE: The patient is an 85-year-old female with history of dementia, depression, hyperte nsion, anemia, seizures. The patient is also legally blind. The patient presents with anxiety and weakness. The patient was felt to have altered mental status secondary to polypharmacy for the back pain. The patient did have an MRI of the back that showed moderate to severe canal stenosis L4-L5. The patient was seen by ortho. Recommendation was for steroids, but the family did not want the pa tient to be on steroids. The patient did become acutely confused during hospitalization, possibly s econdary to benzos. Psychoactive medications were then stopped, and the patient's mentation improve d and returned back to baseline. The patient was felt to be too weak and unsteady with her gait to return home, and it was felt that SNF with PT would be appropriate for her. The patient's daughter did agree to this and did want patient to go to [facility]. On the day of discharge, the patient's vit als, labs, and physical exam were stable. Of note, the patient did have a UA that was completely no rmal. Urine culture did show E. coli and Proteus. This was felt to be just colonization in nature as the patient had no pyuria in the urine. Once again, on the day of discharge, the patient's vital s, labs, and physical exam were stable. She had no acute complaints. Questions were answered. CONDITION ON DISCHARGE: Stable. DISPOSITION: To SNF at [facility]. MEDICATIONS: The patient is to continue her usual home medications. No new medications were prescr ibed. FOLLOWUP: The patient is to follow up with her PCP and physicians at [facility]. Greater than 30 minutes was spent coordinating discharge of patient. Dictated By: JOLENE COBB MD BS/NTS Conf#: [id number] DID#: [id number]
== END 2016-07-13 12:40 | DRG 93 ==
LOC: E/R 21:21 → MS4 23:05 → OBSVTOIN 07-04 16:21 → MS2 07-06 11:45
PROVIDERS: ADMIT Internal Medicine; ATTEND Internal Medicine
DX: G92 Toxic encephalopathy (principal); G40.909 Epilepsy, unspecified, not intractable, without status epilepticus; F02.80 Dementia in other diseases classified elsewhere, unspecified severity, without behavioral disturbance, psychotic disturbance, mood disturbance, and anxiety; I10 Essential (primary) hypertension; T50.995A Adverse effect of other drugs, medicaments and biological substances, initial encounter; F41.9 Anxiety disorder, unspecified; H54.0 Blindness, both eyes; R41.0 Disorientation, unspecified; R53.1 Weakness; R53.81 Other malaise; M54.9 Dorsalgia, unspecified; M48.06 Spinal stenosis, lumbar region; M25.552 Pain in left hip; M25.551 Pain in right hip; Z90.49 Acquired absence of other specified parts of digestive tract
CPT/HCPCS: 36600; 70450; 70551; 71010; 72148; 73510; 80048; 80053; 80061; 80307; 81003; 82140; 82803; 82962; 83036; 83735; 84100; 84443; 84484; 85025; 85610; 85730; 87086; 92526; 92610; 93005; 93306; 93880; 96361; 96374; 97116; 97162; 97530; G0378; J1650; J2060; J2270; J2310; J7040; J7509